=== PATIENT | male | born 1975 | race Caucasian/White ===

== ENCOUNTER → 2018-01-04 | Outpatient (CLI) | payer BC ==
[2018-01-04 09:06] LABS: BASO # 0.1 10^3/uL (0.0-0.2); BASO % 1.1 % (0.0-1.0); EOS # 0.4 10^3/uL (0.0-0.50); EOS % 5.6 % (0.0-3.0); HEMATOCRIT 40.3 % (42.0-52.0); HEMOGLOBIN 13.7 g/dl (13.5-17.5); IMMATURE GRANULOCYTE % 0.7 % (0-3.0); LYMPH # 2.2 10^3/uL (1.5-4.5); LYMPH % 31.9 % (24.0-44.0); MEAN CORPUSCULAR HEMOGLOBIN 31.4 pg (27.0-33.0); MEAN CORPUSCULAR VOLUME 92.4 fl (80.0-96.0); MONO # 0.8 10^3/uL (0.0-0.8); MONO % 10.8 % (0.0-5.0); NEUTROPHILS # 3.5 10^3/uL (1.8-7.7); NEUTROPHILS % 49.9 % (36.0-66.0); PLATELET COUNT, AUTOMATED 284 10^3/uL (150-450); RED BLOOD COUNT 4.36 10^6/uL (4.30-6.10); RED CELL DISTRIBUTION WIDTH 12.8 % (11.5-14.5)
[2018-01-04 09:23] LABS: ESTIMATED AVERAGE GLUCOSE 126 MG/DL (60-110)
[2018-01-04 09:30] LABS: ALBUMIN 3.7 GM/DL (3.2-5.2); ALBUMIN/GLOBULIN RATIO 1.19 (1.00-1.93); ALKALINE PHOSPHATASE 67 U/L (45-117); ALT/SGPT 27 U/L (12-78); ANION GAP 4 MEQ/L (8-16); AST/SGOT 19 U/L (7-37); BILIRUBIN,TOTAL 0.3 MG/DL (0.2-1.0); BLOOD UREA NITROGEN 8 MG/DL (7-18); CALCIUM LEVEL 8.7 MG/DL (8.5-10.1); CARBON DIOXIDE LEVEL 30 MEQ/L (21-32); CHLORIDE LEVEL 107 MEQ/L (98-107); CHOLESTEROL LEVEL 185 MG/DL (<200); CHOLESTEROL RISK RATIO 4.512 (<5); CREATININE FOR GFR 0.88 MG/DL (0.70-1.30); GLOMERULAR FILTRATION RATE > 60.0 (>60); GLUCOSE, FASTING 106 MG/DL (70-100); HDL CHOLESTEROL 41 MG/DL (>40); NON-HDL-C 144 MG/DL; POTASSIUM SERUM 4.4 MEQ/L (3.5-5.1); SODIUM LEVEL 141 MEQ/L (136-145); TOTAL PROTEIN 6.8 GM/DL (6.4-8.2); TRIGLYCERIDES LEVEL 310 MG/DL (<150)
[2018-01-06 09:57] LABS: TESTOSTERONE 254 NG/DL (241-827)
== END ==
LOC: M WUC 08:16
DX: M79.671 Pain in right foot (principal); R68.82 Decreased libido; R73.01 Impaired fasting glucose
CPT/HCPCS: 84403

== ENCOUNTER 2020-06-03 12:59 | Emergency (ER) | payer BC ==
[~2020-06-03] VITALS: Ht 182.9 cm; Wt 94.7 kg
[2020-06-03 13:51] LABS: BASO # 0.1 10^3/uL (0.0-0.2); BASO % 0.8 % (0.0-1.0); EOS # 0.1 10^3/uL (0.0-0.5); EOS % 1.1 % (0.0-3.0); HEMATOCRIT 46.6 % (42.0-52.0); HEMOGLOBIN 16.4 g/dl (13.5-17.5); LYMPH # 1.4 10^3/uL (1.5-5.0); MEAN CORPUSCULAR HEMOGLOBIN 32.7 pg (27.0-33.0); MEAN CORPUSCULAR HGB CONC 35.2 g/dl (32.0-36.5); MONO # 0.6 10^3/uL (0.0-0.8); MONO % 8.1 % (0.0-5.0); NEUTROPHILS # 5.1 10^3/uL (1.5-8.5); NEUTROPHILS % 70.4 % (36.0-66.0); PLATELET COUNT, AUTOMATED 271 10^3/uL (150-450); RED BLOOD COUNT 5.01 10^6/uL (4.30-6.10); WHITE BLOOD COUNT 7.3 10^3/uL (4.0-10.0)
[2020-06-03] MEDS ORDERED: NS 1,000 ML IV ONE (14:00)
[2020-06-03] MEDS ORDERED: PANTOPRAZOLE 40MG VIAL (C9113 PER 1) IV ONE (14:00)
--- NOTE | 2020-06-03 14:14 | REPVR ---
PROCEDURE INFORMATION: Exam: XR Chest, 2 Views Exam date and time: 06/03/2020 2:01 PM Age: 44 years old Clinical indication: Other: Vomiting with abdominal pain TECHNIQUE: Imaging protocol: XR of the chest Views: 2 views. COMPARISON: No relevant prior studies available. FINDINGS: Lungs: Unremarkable. No consolidation. Pleural space: Unremarkable. No pleural effusion. No pneumothorax. Heart/Mediastinum: Unremarkable. No cardiomegaly. Bones/joints: Unremarkable. IMPRESSION: No evidence for acute pulmonary disease. Electronically signed by: Pravin Cruz On 06/03/2020 14:14:28 PM
[2020-06-03 14:20] LABS: ALBUMIN 3.7 GM/DL (3.2-5.2); ALT/SGPT 119 U/L (12-78); BILIRUBIN,DIRECT 0.3 MG/DL (0.0-0.2); BILIRUBIN,TOTAL 0.8 MG/DL (0.2-1.0); BLOOD UREA NITROGEN 8 MG/DL (7-18); CALCIUM LEVEL 8.9 MG/DL (8.5-10.1); CARBON DIOXIDE LEVEL 26 MEQ/L (21-32); CHLORIDE LEVEL 103 MEQ/L (98-107); CREATININE FOR GFR 1.17 MG/DL (0.70-1.30); GLOMERULAR FILTRATION RATE > 60.0 (>60); GLUCOSE, FASTING 131 MG/DL (70-100); LIPASE 76 U/L (73-393); POTASSIUM SERUM 3.7 MEQ/L (3.5-5.1); SODIUM LEVEL 138 MEQ/L (136-145); TOTAL PROTEIN 7.3 GM/DL (6.4-8.2)
[2020-06-03] MEDS ORDERED: ISOVUE-370 76% 100ML VIAL As Ordered ONE (14:28)
--- NOTE | 2020-06-03 14:50 | REPVR ---
PROCEDURE INFORMATION: Exam: CT Abdomen And Pelvis With Contrast Exam date and time: 06/03/2020 2:31 PM Age: 44 years old Clinical indication: Abdominal pain; Epigastric; Additional info: Epigastric pain, coffee ground emesis TECHNIQUE: Imaging protocol: Computed tomography of the abdomen and pelvis with intravenous contrast. Radiation optimization: All CT scans at this facility use at least one of these dose optimization techniques: automated exposure control; mA and/or kV adjustment per patient size (includes targeted exams where dose is matched to clinical indication); or iterative reconstruction. Contrast material: ISOVUE 370; Contrast volume: 100 ml; Contrast route: INTRAVENOUS (IV); COMPARISON: No relevant prior studies available. FINDINGS: Lungs: The visualized lung bases are essentially clear. Liver: The liver is fatty in density. It appears otherwise unremarkable. Gallbladder and bile ducts: No gallstones are evident, but ultrasound would be more sensitive. No gross biliary ductal dilatation. Pancreas: Normal. No ductal dilation. Spleen: Normal. No splenomegaly. Adrenals: Normal. No mass. Kidneys and ureters: The left kidney appears unremarkable. The right kidney contains a 6 mm cyst, not requiring follow-up. It appears otherwise unremarkable. Stomach and bowel: The unopacified small bowel is not significantly distended to suggest obstruction. There is probably mild wall thickening of multiple distal small bowel loops, as well as of much of the descending and sigmoid colon and rectum. There is minor scattered colonic diverticulosis without evidence for diverticulitis. Appendix: The appendix appears normal. Intraperitoneal space: No free air or significant free fluid. Vasculature: The abdominal aorta is nonaneurysmal. Atherosclerotic vascular calcifications are noted. The left renal vein is noted to be circumaortic. Lymph nodes: Unremarkable. No enlarged lymph nodes. Bladder: Grossly unremarkable. Reproductive: Unremarkable as visualized. Bones/joints: Degenerative changes involve the spine and hips. Soft tissues: Unremarkable. IMPRESSION: 1. Probable mild wall thickening of multiple distal small bowel loops, as well as much of the descending and sigmoid colon and rectum, suggesting a nonspecific enterocolitis. 2. Minor scattered colonic diverticulosis without evidence for diverticulitis. 3. Fatty liver. COMMENTS: Consistent with the [employer]'s Incidental Findings Committee white paper (J Am Bishnu Radiol 2018): Any incidental renal lesion less than 1.0 cm or classified as too small to characterize, or any incidental cystic renal lesion characterized as simple-appearing, is likely benign. No follow-up imaging is recommended for these lesions per consensus recommendations based on imaging criteria. Electronically signed by: Pravin Cruz On 06/03/2020 14:49:43 PM
[2020-06-03 15:10] LABS: CK-MB VALUE MASS < 1.0 NG/ML (<3.6); CPK CREATINE PHOSPHOKINASE 119 U/L (39-308); MB/CK RELATIVE INDEX 0.84 (< OR =4); TROPONIN I < 0.02 NG/ML (< 0.10)
[2020-06-03 16:31] LABS: BILIRUBIN, URINE MANUAL NEGATIVE (NEGATIVE); GLUCOSE, URINE (UA) MANUAL NEGATIVE (NEGATIVE); KETONE, URINE MANUAL NEGATIVE (NEGATIVE); UROBILINOGEN, URINE MANUAL NORMAL (NORMAL)
[2020-06-03 16:38] LABS: BACTERIA, URINE NONE SEEN; HYALINE CAST, URINE NONE SEEN /lpf (0-1); SQUAMOUS EPITHELIAL CELL URINE NONE SEEN /hpf (SMALL AMT)
[2020-06-03 17:11] VITALS: BP 158/98
[2020-06-03] MEDS ORDERED: CARA1TAB6 PO (17:23)
[2020-06-03] MEDS ORDERED: OMEP40CA97 PO (17:23)
[2020-06-03] MEDS ORDERED: ONDA4TAB6 PO (17:27)
--- NOTE | 2020-06-07 09:56 | ECGEPIP ---
[facility] - ED Test Date: 2020-06-03 Pat Name: HERSON GONZALEZ Department: Room: - Gender: Male Buffer Machine: : 1975 Requested By: JOSE Connolly PA-C Order Number: [id number] Reading MD: Shabbir Kamara Measurements Intervals [place] Rate: 94 P: 13 NE: 151 QRS: -43 QRSD: 106 T: 1 QT: 370 QTc: 463 Interpretive Statements SINUS RHYTHM LEFT AXIS DEVIATION PATTERN CONSISTENT WITH PULMONARY DISEASE NO PRIORS FOR COMPARISON Electronically Signed on 06-07-2020 9:56:31 EDT by Shabbir Kamara
== END 2020-06-03 18:03 | disposition home or self-care (01) ==
LOC: M ED 12:59
DX: K52.9 Noninfective gastroenteritis and colitis, unspecified (principal); K92.0 Hematemesis; K76.0 Fatty (change of) liver, not elsewhere classified; R03.0 Elevated blood-pressure reading, without diagnosis of hypertension; K57.30 Diverticulosis of large intestine without perforation or abscess without bleeding
CPT/HCPCS: 71046; 74177; 80048; 80076; 81000; 81015; 82550; 82553; 83690; 84484; 85025; 86850; 86900; 86901; 93005; 96361; 96374; 99284; C9113; Q9967

== ENCOUNTER 2020-06-22 10:45 | Emergency (ER) | payer BC ==
[~2020-06-22] VITALS: Ht 182.9 cm; Wt 95.1 kg
[~2020-06-22 10:45] MED LIST: CARA1TAB6 PO; OMEP40CA97 PO; ONDA4TAB6 PO
[2020-06-22] MEDS ORDERED: MORPHINE 4 MG/ML 1ML VIAL/SYRINGE (J2270) IV ONE ×2 (11:15→13:15)
[2020-06-22] MEDS ORDERED: ONDANSETRON 4MG/2ML VIAL IV ONE (11:15)
[2020-06-22] MEDS ORDERED: NS 1,000 ML IV ONE (11:15)
[2020-06-22 11:36] LABS: BASO # 0.1 10^3/uL (0.0-0.2); BASO % 0.7 % (0.0-1.0); EOS # 0.1 10^3/uL (0.0-0.5); EOS % 1.1 % (0.0-3.0); HEMATOCRIT 43.1 % (42.0-52.0); HEMOGLOBIN 15.2 g/dl (13.5-17.5); LYMPH % 9.3 % (24.0-44.0); MEAN CORPUSCULAR HEMOGLOBIN 32.1 pg (27.0-33.0); MEAN CORPUSCULAR HGB CONC 35.3 g/dl (32.0-36.5); MEAN CORPUSCULAR VOLUME 91.1 fl (80.0-96.0); MONO # 1.1 10^3/uL (0.0-0.8); MONO % 9.9 % (0.0-5.0); NEUTROPHILS # 8.4 10^3/uL (1.5-8.5); NEUTROPHILS % 78.1 % (36.0-66.0); PLATELET COUNT, AUTOMATED 267 10^3/uL (150-450); RED BLOOD COUNT 4.73 10^6/uL (4.30-6.10); WHITE BLOOD COUNT 10.8 10^3/uL (4.0-10.0)
[2020-06-22 12:01] LABS: ALBUMIN 3.4 GM/DL (3.2-5.2); BILIRUBIN,DIRECT 0.3 MG/DL (0.0-0.2); BILIRUBIN,TOTAL 0.7 MG/DL (0.2-1.0); TOTAL PROTEIN 7.3 GM/DL (6.4-8.2)
[2020-06-22] MEDS: GASTROGRAFIN SOLUTION 30ML PO SCH ×2 (12:04→12:06)
[2020-06-22] MEDS ORDERED: ISOVUE-370 76% 100ML VIAL As Ordered ONE (13:10)
--- NOTE | 2020-06-22 14:19 | REPVR ---
PROCEDURE INFORMATION: Exam: CT Abdomen And Pelvis With Contrast Exam date and time: 06/22/2020 1:30 PM Age: 44 years old Clinical indication: Abdominal pain; Additional info: Return visit for severe abd pain TECHNIQUE: Imaging protocol: Computed tomography of the abdomen and pelvis with intravenous contrast. Radiation optimization: All CT scans at this facility use at least one of these dose optimization techniques: automated exposure control; mA and/or kV adjustment per patient size (includes targeted exams where dose is matched to clinical indication); or iterative reconstruction. Contrast material: ISOVUE 370; Contrast volume: 100 ml; Contrast route: INTRAVENOUS (IV); Other contrast: Oral; COMPARISON: CT ABD/PEL W/IV CONTRAST ONLY 06/03/2020 2:27 PM FINDINGS: Lungs: No suspicious mass or airspace process in the visualized lung bases. Liver: Liver is enlarged and decreased in density, consistent with fatty infiltration. Gallbladder and bile ducts: Gallbladder is present and shows no evidence of gallstone. Pancreas: Pancreas appears normal. No focal mass or peripancreatic inflammation. Spleen: Spleen appears homogeneous without focal mass. Adrenals: Adrenal glands are normal in appearance. Kidneys and ureters: Kidneys appear normal, with no stone, solid mass or hydronephrosis. Stomach and bowel: Terminal ileum has normal appearance. No evidence of acute diverticulitis. Appendix: Normal caliber appendix is identified, with no adjacent inflammation. Intraperitoneal space: No evidence of mesenteric mass. Vasculature: No aortic aneurysm. Main portal and splenic veins enhance normally. Incidental circumaortic left renal vein. Lymph nodes: No enlarged lymph nodes. Urinary bladder: Bladder is decompressed and not well evaluated. Reproductive: Dystrophic prostate calcifications are noted. Bones/joints: Bony structures are normal except for lower lumbar spine degenerative disc changes. Soft tissues: Unremarkable. IMPRESSION: 1. No acute bowel abnormality. 2. Diffuse hepatic steatosis and mild hepatomegaly Electronically signed by: Santosh Cordero On 06/22/2020 14:18:57 PM
[2020-06-22] MEDS ORDERED: CIPR-249 PO (16:47)
[2020-06-22] MEDS ORDERED: NORC1TAB7 PO (16:50)
[2020-06-22 17:00] VITALS: BP 165/110
[2020-06-22] MEDS ORDERED: CIPROFLOXACIN 500MG TABLET PO ONE (17:15)
[2020-06-22] MEDS ORDERED: NORCO, ANEXSIA 5/325MG TABLET (HYDROcodone/ACETAMINOPHEN) PO ONE (17:15)
--- NOTE | 2020-06-25 09:12 | ER ---
DATE OF CONSULTATION: 06/22/2020 BRIEF HISTORY OF PRESENT ILLNESS: Patient is a 44-year-old gentleman who has had abdominal pain for several weeks now, has had some chronic diarrhea associated with this, was seen in the emergency room previously, had some thickening of the bowel, but since that time returns today for reevaluation because of ongoing abdominal pain, has a slightly elevated white count of 10.8. He states that his pain is significant enough that he has had some problems even standing up or standing for prolonged periods of time given his abdominal pain. He does have a family history of Crohns disease (mother) and his grandfather also had colitis of undetermined etiology and had from this in the remote past. He has not had any previous problems over the years with no significant diarrhea issues, etc. He does not recall anybody else being sick or having gastroenteritis issues. PAST MEDICAL HISTORY: Significant for gastroesophageal (GE) reflux, history of hernia repair. PHYSICAL EXAMINATION: Reveals a 44-year-old male who looks stated age. HEENT: Unremarkable. Neck: Supple without adenopathy. Lungs: Clear. Heart: Regular. Abdomen: Soft, nondistended, but he is tender throughout but it is generalized tenderness, not severe peritoneal signs but just significant discomfort with palpation and this is throughout the abdomen. Extremities: Warm and well-perfused. His CT scan, when I review it, although reportedly does not show any significant problems, he has mucosal thickening of his right colon, transverse colon, and specifically right next to the costal margin in the left transverse colon he has significant inflammatory changes of the mucosa. I still see some in the descending colon but not as much, and some in the sigmoid area, but in the rectum looks like it is not as much as well. There appears to be areas where the bowel wall appears to be normal. IMPRESSION/PLAN: Patient has evidence of significant diarrhea with a family history of Crohns disease. He did get a gastrointestinal (GI) panel sent off for infectious etiology. If this is negative, I would recommend treating him empirically with some steroids and pain control. However, gastrointestinal (GI) is oncologist this weekend if further recommendations are desired. Given that I feel that this will eventually be a Crohns patient that needs to be evaluated by gastrointestinal (GI), it may be reasonable to have followup with gastrointestinal (GI) instead of surgical followup in the next several weeks. CESILIA
== END 2020-06-22 17:15 | disposition home or self-care (01) ==
LOC: M ED 10:45
DX: A02.0 Salmonella enteritis (principal); K76.0 Fatty (change of) liver, not elsewhere classified; R16.2 Hepatomegaly with splenomegaly, not elsewhere classified; K21.9 Gastro-esophageal reflux disease without esophagitis; Z83.79 Family history of other diseases of the digestive system
CPT/HCPCS: 74177; 80047; 80076; 81001; 83605; 83690; 85025; 87040; 87507; 96361; 96374; 96375; 96376; 99284; J2270; J2405; Q9963; Q9967

== ENCOUNTER → 2020-06-28 | Outpatient (CLI) | payer BC ==
[~2020-06-28] MED LIST changes: +CIPR-249 PO; +NORC1TAB7 PO
== END ==
LOC: M LABSMTC 08:17
PROVIDERS: ATTEND Anesthesiology
DX: Z01.812 Encounter for preprocedural laboratory examination (principal); Z20.828 Contact with and (suspected) exposure to other viral communicable diseases
CPT/HCPCS: C9803; U0003

== ENCOUNTER 2020-07-02 08:30 | Day surgery (SDC) | payer BC ==
[~2020-07-02] VITALS: Ht 182.9 cm; Wt 95.7 kg
[~2020-07-02 08:30] MED LIST changes: +NS 1,000 ML IV ONE
[2020-07-02] MEDS ORDERED: LIDOCAINE 2% 100MG/5ML SDV (FOR ANES.) As Ordered ONE (09:37)
[2020-07-02] MEDS ORDERED: fentaNYL 100 MCG/2 ML INJECTION (J3010) As Ordered ONE (09:38)
[2020-07-02] MEDS ORDERED: propofoL 500 MG/50 ML VIAL As Ordered ONE (09:40)
[2020-07-02] MEDS ORDERED: propofoL 200 MG/20 ML VIAL As Ordered ONE (10:40)
--- NOTE | 2020-07-02 10:47 | ROOR ---
Patient Name: Freddie Ford Procedure Date: 07/02/2020 10:09 AM Date of : 1975 Age: 44 Room: [facility] Gender: Male Note Status: Finalized Procedure: Upper GI endoscopy Indications: Hematemesis Providers: Marcos Romero DO Referring MD: Marcos Romero DO Requesting Provider: Medicines: Propofol per Anesthesia Complications: No immediate complications. Procedure: Pre-Anesthesia Assessment: - Prior to the procedure, a History and Physical was performed, and patient medications and allergies were reviewed. The patient is competent. The risks and benefits of the procedure and the sedation options and risks were discussed with the patient. All questions were answered and informed consent was obtained. Patient identification and proposed procedure were verified by the physician, the nurse, the anesthesiologist and the technician chemical cleaning in the endoscopy suite. Mental Status Examination: alert and oriented. Airway Examination: normal oropharyngeal airway and neck mobility. Respiratory Examination: clear to auscultation. CV Examination: normal. Prophylactic Antibiotics: The patient does not require prophylactic antibiotics. Prior Anticoagulants: The patient has taken no previous anticoagulant or antiplatelet agents. ASA Grade Assessment: II - A patient with mild systemic disease. After reviewing the risks and benefits, the patient was deemed in satisfactory condition to undergo the procedure. The anesthesia plan was to use monitored anesthesia care (MAC). Immediately prior to administration of medications, the patient was re-assessed for adequacy to receive sedatives. The heart rate, respiratory rate, oxygen saturations, blood pressure, adequacy of pulmonary ventilation, and response to care were monitored throughout the procedure. The physical status of the patient was re-assessed after the procedure. The Endoscope was introduced through the mouth, and advanced to the second part of duodenum. The upper GI endoscopy was accomplished without difficulty. The patient tolerated the procedure well. Findings: Diffuse mild inflammation characterized by erosions, erythema and friability was found in the duodenal bulb, in the first portion of the duodenum and in the second portion of the duodenum. Biopsies were taken with a cold forceps for histology. Estimated blood loss was minimal. Diffuse mild inflammation characterized by congestion (edema), erosions and erythema was found in the prepyloric region of the stomach. Biopsies were taken with a cold forceps for Helicobacter pylori testing. Estimated blood loss was minimal. The Z-line was irregular. Biopsies were taken with a cold forceps for histology. Estimated blood loss was minimal. Impression: - Duodenitis. Biopsied. - Gastritis. Biopsied. - Z-line irregular. Biopsied. Recommendation: - Patient has a contact number available for emergencies. The signs and symptoms of potential delayed complications were discussed with the patient. Return to normal activities tomorrow. Written discharge instructions were provided to the patient. - Return to my office at appointment to be scheduled. - Await pathology results. Marcos Romero DO 07/02/2020 10:47:08 AM Electronically signed by Marcos Romero DO Number of Addenda: 0 Note Initiated On: 07/02/2020 10:09 AM Estimated Blood Loss: Estimated blood loss was minimal.
--- NOTE | 2020-07-02 10:51 | ROOR ---
Patient Name: Freddie Ford Procedure Date: 07/02/2020 10:09 AM Date of : 1975 Age: 44 Room: [facility] Gender: Male Note Status: Finalized Procedure: Colonoscopy Indications: Abnormal CT of the GI tract Providers: Marcos Romero DO Referring MD: Marcos Romero DO Requesting Provider: Medicines: Propofol per Anesthesia Complications: No immediate complications. Procedure: Pre-Anesthesia Assessment: - Prior to the procedure, a History and Physical was performed, and patient medications and allergies were reviewed. The patient is competent. The risks and benefits of the procedure and the sedation options and risks were discussed with the patient. All questions were answered and informed consent was obtained. Patient identification and proposed procedure were verified by the physician, the nurse, the anesthesiologist and the audio/video technician in the endoscopy suite. Mental Status Examination: alert and oriented. Airway Examination: normal oropharyngeal airway and neck mobility. Respiratory Examination: clear to auscultation. CV Examination: normal. Prophylactic Antibiotics: The patient does not require prophylactic antibiotics. Prior Anticoagulants: The patient has taken no previous anticoagulant or antiplatelet agents. ASA Grade Assessment: II - A patient with mild systemic disease. After reviewing the risks and benefits, the patient was deemed in satisfactory condition to undergo the procedure. The anesthesia plan was to use monitored anesthesia care (MAC). Immediately prior to administration of medications, the patient was re-assessed for adequacy to receive sedatives. The heart rate, respiratory rate, oxygen saturations, blood pressure, adequacy of pulmonary ventilation, and response to care were monitored throughout the procedure. The physical status of the patient was re-assessed after the procedure. The Colonoscope was introduced through the anus and advanced to the cecum, identified by appendiceal orifice and ileocecal valve. The colonoscopy was performed without difficulty. The patient tolerated the procedure well. Findings: Diffuse moderate inflammation characterized by adherent blood, congestion (edema), erythema and friability was found in the recto-sigmoid colon, in the sigmoid colon, in the descending colon and in the cecum. Biopsies were taken with a cold forceps for histology. Estimated blood loss was minimal. Impression: - Diffuse moderate inflammation was found in the recto-sigmoid colon, in the sigmoid colon, in the descending colon and in the cecum. Biopsied. Recommendation: - Patient has a contact number available for emergencies. The signs and symptoms of potential delayed complications were discussed with the patient. Return to normal activities tomorrow. Written discharge instructions were provided to the patient. - Repeat colonoscopy in 3 - 5 years for surveillance based on pathology results. - Return to my office at appointment to be scheduled. - Await pathology results. Marcos Romero DO 07/02/2020 10:50:39 AM Electronically signed by Marcos Romero DO Number of Addenda: 0 Note Initiated On: 07/02/2020 10:09 AM Estimated Blood Loss: Estimated blood loss was minimal.
[2020-07-02 11:10] VITALS: BP 196/102
== END 2020-07-02 11:42 | disposition home or self-care (01) ==
LOC: M OPP 08:30
PROVIDERS: ATTEND Surgery
DX: K52.9 Noninfective gastroenteritis and colitis, unspecified (principal); R93.3 Abnormal findings on diagnostic imaging of other parts of digestive tract; K29.80 Duodenitis without bleeding; K29.70 Gastritis, unspecified, without bleeding; K22.8 Other specified diseases of esophagus; K92.0 Hematemesis; F17.210 Nicotine dependence, cigarettes, uncomplicated
CPT/HCPCS: 43239; 45380; 88305; J3010

== ENCOUNTER → 2021-10-21 | Outpatient (CLI) | payer BC ==
[~2021-10-21] MED LIST changes: -NS 1,000 ML IV ONE; +OMEP40CA4 PO; -OMEP40CA97 PO
[2021-10-21 15:42] LABS: BASO # 0.1 10^3/uL (0.0-0.2); BASO % 0.8 % (0.0-1.0); EOS # 0.1 10^3/uL (0.0-0.5); EOS % 1.6 % (0.0-3.0); HEMATOCRIT 46.1 % (42.0-52.0); HEMOGLOBIN 15.9 g/dl (13.5-17.5); LYMPH # 1.5 10^3/uL (1.5-5.0); LYMPH % 18.8 % (24.0-44.0); MEAN CORPUSCULAR HEMOGLOBIN 30.8 pg (27.0-33.0); MEAN CORPUSCULAR HGB CONC 34.5 g/dl (32.0-36.5); MEAN CORPUSCULAR VOLUME 89.2 fl (80.0-96.0); MONO # 0.6 10^3/uL (0.0-0.8); NEUTROPHILS # 5.7 10^3/uL (1.5-8.5); PLATELET COUNT, AUTOMATED 296 10^3/uL (150-450); RED BLOOD COUNT 5.17 10^6/uL (4.30-6.10)
[2021-10-21 16:04] LABS: HEMOGLOBIN A1c 7.9 %
[2021-10-21 16:10] LABS: ALT/SGPT 57 U/L (12-78); BILIRUBIN,TOTAL 0.5 MG/DL (0.2-1.0); BLOOD UREA NITROGEN 12 MG/DL (7-18); CALCIUM LEVEL 9.4 MG/DL (8.5-10.1); CARBON DIOXIDE LEVEL 28 MEQ/L (21-32); CHLORIDE LEVEL 104 MEQ/L (98-107); CHOLESTEROL LEVEL 256 MG/DL (<200); CHOLESTEROL RISK RATIO 3.459 (<5); CREATININE FOR GFR 1.08 MG/DL (0.70-1.30); GLOMERULAR FILTRATION RATE > 60.0 (>60); GLUCOSE, FASTING 183 MG/DL (70-100); HDL CHOLESTEROL 74 MG/DL (>40); LDL CHOLESTEROL 154 MG/DL (<100); NON-HDL-C 182 MG/DL; POTASSIUM SERUM 3.7 MEQ/L (3.5-5.1); SODIUM LEVEL 138 MEQ/L (136-145); TOTAL PROTEIN 7.8 GM/DL (6.4-8.2); TRIGLYCERIDES LEVEL 141 MG/DL (<150)
[2021-10-21 17:02] LABS: HEPATITIS C VIRUS ABY INDEX < 0.0 INDEX (<0.8)
[2021-10-21 17:03] LABS: HIV 1&2 SCREEN CENTAUR NEGATIVE (NEGATIVE)
== END ==
LOC: M WUC 12:00
PROVIDERS: ATTEND Family Medicine
DX: R73.01 Impaired fasting glucose (principal); Z11.4 Encounter for screening for human immunodeficiency virus [HIV]; K76.0 Fatty (change of) liver, not elsewhere classified; Z11.59 Encounter for screening for other viral diseases; Z13.220 Encounter for screening for lipoid disorders

== ENCOUNTER 2022-11-12 14:07 | Emergency (ER) | payer BC, OTHER, SELFPAY ==
[~2022-11-12] VITALS: Ht 182.9 cm; Wt 99.1 kg
[2022-11-12 14:08] VITALS: BP 175/115
[2022-11-12] MEDS ORDERED: MORPHINE 10 MG/ML 1ML VIAL IM ONE (16:20)
[2022-11-12] MEDS ORDERED: ONDANSETRON 4MG ORAL DISINTEGRATING TAB PO ONE (16:20)
[2022-11-12] MEDS ORDERED: NEOSPORIN OINT 0.9 GM PKT TOP ONE (16:20)
[2022-11-12] MEDS ORDERED: BOOSTRIX/ADACEL VACCINE (DIPHTH/PERTUSS/ACELL/TETANUS) 0.5ML SYR IM ONE (16:20)
[2022-11-12] MEDS ORDERED: PERC5TAB12 PO (17:23)
== END 2022-11-12 17:36 | disposition home or self-care (01) ==
LOC: M ED 14:07
DX: S62.395A Other fracture of fourth metacarpal bone, left hand, initial encounter for closed fracture (principal); S62.175A Nondisplaced fracture of trapezium [larger multangular], left wrist, initial encounter for closed fracture; X58.XXXA Exposure to other specified factors, initial encounter; Y99.0 Civilian activity done for income or pay
CPT/HCPCS: 73110; 73130; 90715; 99283; J2270

== ENCOUNTER → 2022-11-22 | Outpatient (CLI) | payer OTHER ==
[~2022-11-22] MED LIST changes: +PERC5TAB12 PO
== END ==
LOC: M SOG 09:05
PROVIDERS: ATTEND Physician Assistant
DX: S62.175D Nondisplaced fracture of trapezium [larger multangular], left wrist, subsequent encounter for fracture with routine healing (principal); S62.355D Nondisplaced fracture of shaft of fourth metacarpal bone, left hand, subsequent encounter for fracture with routine healing

== ENCOUNTER → 2022-12-03 | Outpatient (CLI) | payer OTHER ==
[~2022-12-03] MED LIST changes: +AMLO1TAB24 PO
== END ==
LOC: M RAD 11:50
PROVIDERS: ATTEND Physician Assistant
DX: S62.309A Unspecified fracture of unspecified metacarpal bone, initial encounter for closed fracture (principal); W18.30XA Fall on same level, unspecified, initial encounter; Y92.009 Unspecified place in unspecified non-institutional (private) residence as the place of occurrence of the external cause

== ENCOUNTER 2022-12-06 14:56 | Day surgery (SDC) | payer OTHER ==
[~2022-12-06] VITALS: Ht 182.9 cm; Wt 93.9 kg
[~2022-12-06 14:56] MED LIST changes: -AMLO1TAB24 PO
[2022-12-06] MEDS ORDERED: AMLO1TAB24 PO (15:31)
[2022-12-06] MEDS ORDERED: MIDAZOLAM INJ 2MG/2ML VIAL As Ordered ONE (16:57)
[2022-12-06] MEDS ORDERED: fentaNYL 100 MCG/2 ML INJECTION As Ordered ONE (16:58)
[2022-12-06] MEDS ORDERED: ROCURONIUM BROMIDE 50MG/5ML VIAL As Ordered ONE (16:59)
[2022-12-06] MEDS ORDERED: LIDOCAINE 2% 100MG/5ML SDV (FOR ANES.) As Ordered ONE (16:59)
[2022-12-06] MEDS ORDERED: ONDANSETRON 4MG 2ML VIAL As Ordered ONE (16:59)
[2022-12-06] MEDS ORDERED: propofoL 200 MG/20 ML VIAL As Ordered ONE (16:59)
[2022-12-06] MEDS ORDERED: SUGAMMADEX SODIUM 500 MG/5 ML VIAL (BRIDION) As Ordered ONE (16:59)
[2022-12-06] MEDS ORDERED: BUPIVACAINE HCL 0.25% 30ML VIAL As Ordered ONE (17:27)
[2022-12-06] MEDS ORDERED: ceFAZolin 2 GM/D5W 50 ML IV BAG As Ordered ONE (17:59)
[2022-12-06] MEDS ORDERED: HYDROmorphone HCL 2MG/ML 1ML VIAL As Ordered ONE (18:18)
[2022-12-06] MEDS ORDERED: ACETAMINOPHEN 1000MG 100ML IV BAG As Ordered ONE (18:20)
[2022-12-06] MEDS ORDERED: METOPROLOL 5 MG/5 ML VIAL As Ordered ONE (18:47)
[2022-12-06] MEDS ORDERED: HYDROMORPHONE HCL 0.5 MG/ 0.5 ML SYRINGE IV PRN (19:50)
[2022-12-06] MEDS ORDERED: ONDANSETRON 4MG 2ML VIAL IV PRN (19:50)
[2022-12-06] MEDS ORDERED: LR 1,000 ML IV SCH (19:50)
[2022-12-06] MEDS ORDERED: PERC5TAB12 PO (20:16)
[2022-12-06] MEDS: oxyCODONE 5MG TAB PO PRN ×2 (20:24→20:57)
[2022-12-06] MEDS: fentaNYL 100 MCG/2 ML INJECTION IV PRN ×2 (20:24→20:31)
[2022-12-06 21:08] VITALS: BP 154/97
== END 2022-12-06 21:28 | disposition home or self-care (01) ==
LOC: M SDC 14:56
PROVIDERS: ATTEND Orthopaedic Surgery Hand Surgery
DX: S62.171A Displaced fracture of trapezium [larger multangular], right wrist, initial encounter for closed fracture (principal); S63.094A Other dislocation of right wrist and hand, initial encounter; X58.XXXA Exposure to other specified factors, initial encounter; Y92.89 Other specified places as the place of occurrence of the external cause; Z53.33 Arthroscopic surgical procedure converted to open procedure; I10 Essential (primary) hypertension; K21.9 Gastro-esophageal reflux disease without esophagitis; F32.A Depression, unspecified; F41.9 Anxiety disorder, unspecified; F43.10 Post-traumatic stress disorder, unspecified; Z79.899 Other long term (current) drug therapy; Z79.890 Hormone replacement therapy
CPT/HCPCS: 25645; 76000; 87635; J0131; J0690; J1100; J1170; J2250; J2405; J3010; S0020

== ENCOUNTER → 2022-12-14 | Outpatient (CLI) | payer OTHER ==
[~2022-12-14] MED LIST changes: +AMLO1TAB24 PO
== END ==
LOC: M SOG 11:13
PROVIDERS: ATTEND Physician Assistant
DX: S62.101A Fracture of unspecified carpal bone, right wrist, initial encounter for closed fracture (principal); W18.30XA Fall on same level, unspecified, initial encounter; Y92.009 Unspecified place in unspecified non-institutional (private) residence as the place of occurrence of the external cause

== ENCOUNTER → 2023-01-04 | Outpatient (CLI) | payer OTHER | LOC: M SOG 07:56 | PROVIDERS: ATTEND Physician Assistant | DX: S62.172D Displaced fracture of trapezium [larger multangular], left wrist, subsequent encounter for fracture with routine healing (principal); S63.095D Other dislocation of left wrist and hand, subsequent encounter; W18.30XD Fall on same level, unspecified, subsequent encounter; Y92.009 Unspecified place in unspecified non-institutional (private) residence as the place of occurrence of the external cause ==

== ENCOUNTER → 2023-02-03 | Outpatient (CLI) | payer OTHER | LOC: M SOG 07:57 | PROVIDERS: ATTEND Physician Assistant | DX: S63.095D Other dislocation of left wrist and hand, subsequent encounter (principal); S62.172D Displaced fracture of trapezium [larger multangular], left wrist, subsequent encounter for fracture with routine healing ==

== ENCOUNTER → 2023-02-17 | Outpatient (CLI) | payer OTHER | LOC: M SOG 08:44 | PROVIDERS: ATTEND Physician Assistant | DX: M25.632 Stiffness of left wrist, not elsewhere classified (principal); M79.642 Pain in left hand; S62.305D Unspecified fracture of fourth metacarpal bone, left hand, subsequent encounter for fracture with routine healing ==

== ENCOUNTER → 2023-03-15 | Outpatient (CLI) | payer OTHER ==
[2023-03-15 14:21] LABS: BASO # 0.1 10^3/uL (0.0-0.2); BASO % 1.3 % (0.0-1.0); EOS # 0.5 10^3/uL (0.0-0.5); EOS % 4.8 % (0.0-3.0); HEMATOCRIT 46.7 % (42.0-52.0); HEMOGLOBIN 15.8 g/dl (13.5-17.5); LYMPH # 2.5 10^3/uL (1.5-5.0); MEAN CORPUSCULAR HGB CONC 33.8 g/dl (32.0-36.5); MEAN CORPUSCULAR VOLUME 91.7 fl (80.0-96.0); MONO # 0.9 10^3/uL (0.0-0.8); MONO % 9.1 % (2.0-8.0); NEUTROPHILS # 5.6 10^3/uL (1.5-8.5); NEUTROPHILS % 57.8 % (36.0-66.0); PLATELET COUNT, AUTOMATED 334 10^3/uL (150-450); RED BLOOD COUNT 5.09 10^6/uL (4.30-6.10); WHITE BLOOD COUNT 9.8 10^3/uL (4.0-10.0)
[2023-03-15 14:43] LABS: ALBUMIN 4.2 G/DL (3.2-5.2); ALKALINE PHOSPHATASE 114 U/L (46-116); ALT/SGPT 46 U/L (7.0-40); AST/SGOT 29 U/L (<34); BILIRUBIN,TOTAL 0.7 MG/DL (0.3-1.2); BLOOD UREA NITROGEN 15 MG/DL (9-23); CALCIUM LEVEL 9.3 MG/DL (8.5-10.1); CARBON DIOXIDE LEVEL 26 MMOL/L (20-31); CHLORIDE LEVEL 104 MMOL/L (98-107); CHOLESTEROL LEVEL 259 MG/DL (<200); CHOLESTEROL RISK RATIO 4.26 (<5); CREATININE FOR GFR 0.78 MG/DL (0.70-1.30); GLOMERULAR FILTRATION RATE > 60.0 (>60); GLUCOSE, FASTING 259 MG/DL (60-100); HDL CHOLESTEROL 60.7 MG/DL (>40); LDL CHOLESTEROL 145.3 MG/DL (<100); NON-HDL-C 198.3 MG/DL; POTASSIUM SERUM 4.1 MMOL/L (3.5-5.1); SODIUM LEVEL 139 MMOL/L (136-145); TOTAL PROTEIN 7.1 G/DL (5.7-8.2); TRIGLYCERIDES LEVEL 265 MG/DL (<150)
[2023-03-15 14:46] LABS: FREE T4 1.01 NG/DL (0.89-1.76)
[2023-03-15 14:47] LABS: THYROID STIMULATING HORMONE 0.847 uIU/ML (0.55-4.78)
[2023-03-15 14:53] LABS: CREATININE, URINE 160.8 MG/DL
[2023-03-15 14:54] LABS: MAU/CREAT RATIO 7.4 MCG/MG (0.0-30.0)
[2023-03-15 15:02] LABS: HEMOGLOBIN A1c 8.2 % (4.0-6.0)
== END ==
LOC: M WUC 10:06
PROVIDERS: ATTEND Family Medicine
DX: E11.9 Type 2 diabetes mellitus without complications (principal)

== ENCOUNTER → 2023-03-24 | Outpatient (CLI) | payer OTHER | LOC: M SOG 08:14 | PROVIDERS: ATTEND Physician Assistant | DX: M79.642 Pain in left hand (principal); S63.095D Other dislocation of left wrist and hand, subsequent encounter; M19.042 Primary osteoarthritis, left hand ==

== ENCOUNTER → 2024-03-27 | Outpatient (CLI) | payer OTHER ==
[~2024-03-27] MED LIST changes: +ONDA-282 PO; -ONDA4TAB6 PO
[2024-03-27 12:21] LABS: ALBUMIN 3.8 G/DL (3.2-5.2); ALKALINE PHOSPHATASE 110 U/L (46-116); ALT/SGPT 45 U/L (7.0-40); AST/SGOT 22 U/L (<34); BILIRUBIN,TOTAL 0.8 MG/DL (0.3-1.2); BLOOD UREA NITROGEN 9 MG/DL (9-23); CALCIUM LEVEL 9.7 MG/DL (8.5-10.1); CARBON DIOXIDE LEVEL 27 MMOL/L (20-31); CHLORIDE LEVEL 100 MMOL/L (98-107); CHOLESTEROL LEVEL 211 MG/DL (<200); CHOLESTEROL RISK RATIO 4.11 (<5); CREATININE FOR GFR 0.75 MG/DL (0.70-1.30); GLOMERULAR FILTRATION RATE > 60.0 (>60); GLUCOSE, FASTING 366 MG/DL (60-100); HDL CHOLESTEROL 51.3 MG/DL (>40); LDL CHOLESTEROL 122.9 MG/DL (<100); NON-HDL-C 159.7 MG/DL; POTASSIUM SERUM 3.1 MMOL/L (3.5-5.1); SODIUM LEVEL 138 MMOL/L (136-145); TRIGLYCERIDES LEVEL 184 MG/DL (<150)
[2024-03-27 12:23] LABS: CREATININE, URINE 130.8 MG/DL; HEMOGLOBIN A1c 11.3 % (4.0-6.0)
== END ==
LOC: M WUC 10:26
PROVIDERS: ATTEND Family Medicine
DX: E66.3 Overweight (principal); E11.9 Type 2 diabetes mellitus without complications; N52.9 Male erectile dysfunction, unspecified

== ENCOUNTER → 2025-04-30 | Outpatient (CLI) | payer OTHER ==
[~2025-04-30] MED LIST changes: +FLUO-365 PO; +METF-838 PO
== END ==
LOC: M WUC 11:42
DX: M95.4 Acquired deformity of chest and rib (principal); M79.671 Pain in right foot; M79.672 Pain in left foot; M19.072 Primary osteoarthritis, left ankle and foot; M77.31 Calcaneal spur, right foot; M77.32 Calcaneal spur, left foot

== ENCOUNTER → 2025-04-30 | Outpatient (REF) | payer OTHER | LOC: M SFHCLERA 11:07 | DX: Z00.00 Encounter for general adult medical examination without abnormal findings (principal); E11.9 Type 2 diabetes mellitus without complications; Z53.9 Procedure and treatment not carried out, unspecified reason ==

== ENCOUNTER 2025-05-01 17:19 | Inpatient (IN) | payer OTHER ==
[~2025-05-01] VITALS: Ht 182.9 cm; Wt 80.7 kg
[~2025-05-01 17:19] MED LIST changes: -ALCOPAD25 TOP; -ALDA25TA2 PO; -BLOOKIT21 XX; -FARX1TAB3 PO; -FARX1TAB5 PO; -FLUO-365 PO; -GLUC1TES2 XX; -LANC30MI XX; -LOPE1CAP5 PO; -LOPE2CAP PO; -METF-838 PO; -POTA-151 PO; -POTA-298 PO; -SLOW1TAB3 PO; -SPIR-10 PO; -TALK1KIT MC; -TUMS750C5 PO
[2025-05-01] MEDS: MAG SULF 1GM/100ML (MAG RUN) 1 GM in IV 1 EA IV ONE (18:00)
[2025-05-01] MEDS: POTASSIUM CHLORIDE 10% LIQ 20MEQ/15ML UDC PO ONE (18:04)
[2025-05-01] MEDS: KCL 10MEQ/100ML SWI (KRUN) 10 MEQ in IV 1 EA IV ONE (18:05)
[2025-05-01] MEDS: NS (Normal Saline) 0.9% 1,000 ML IV ONE (18:11)
[2025-05-01 18:30] LABS: ALT/SGPT 81 U/L (7.0-40); AST/SGOT 124 U/L (<34); CALCIUM LEVEL 8.2 MG/DL (8.5-10.1); CARBON DIOXIDE LEVEL > 40.0 MMOL/L (20-31); CHLORIDE LEVEL 74 MMOL/L (98-107); CREATININE FOR GFR 1.12 MG/DL (0.70-1.30); GLOMERULAR FILTRATION RATE 80.0 (>56); MAGNESIUM LEVEL 1.6 MG/DL (1.8-2.4); POTASSIUM SERUM 2.0 MMOL/L (3.5-5.1); SODIUM LEVEL 129 MMOL/L (136-145)
[2025-05-01 18:32] LABS: VENOUS BASE EXCESS 18.4 (-2.0-2.0); VENOUS HCO3 44.6 MMOL/L (23.0-27.0); VENOUS O2 SATURATION 50.0 % (60.0-80.0); VENOUS PARTIAL PRESSURE CO2 56.9 mmHg (38.0-50.0); VENOUS PARTIAL PRESSURE O2 25.6 mmHg (30.0-50.0); VENOUS PH 7.512 UNITS (7.330-7.430); VENOUS STANDARD HCO3 41.1 MMOL/L; VENOUS TOTAL CO2 46.3 MMOL/L (24.0-28.0)
[2025-05-01] MEDS ORDERED: METF-838 PO (18:33)
[2025-05-01] MEDS ORDERED: FLUO-365 PO (18:33)
[2025-05-01] MEDS ORDERED: HOME MED LIST COMPLETE! XX SCH (18:35)
[2025-05-01 19:05] LABS: ACETONE/KETONE 0.42 MMOL/L (0.02-0.27)
[2025-05-01 19:12] LABS: OSMOLALITY SERUM 279.0 MOSM/KG (275-295)
[2025-05-01 21:12] LABS: BASO # 0.1 10^3/uL (0.0-0.2); BASO % 0.7 % (0.0-1.0); EOS # 0.1 10^3/uL (0.0-0.5); EOS % 0.8 % (0.0-3.0); LYMPH # 2.1 10^3/uL (1.5-5.0); LYMPH % 23.6 % (24.0-44.0); MONO # 1.0 10^3/uL (0.0-0.8); MONO % 11.3 % (2.0-8.0); NEUTROPHILS # 5.6 10^3/uL (1.5-8.5); NEUTROPHILS % 62.8 % (36.0-66.0); PLATELET COUNT, AUTOMATED 171 10^3/uL (150-450)
[2025-05-01 21:28] LABS: KETONE, URINE AUTO RFX NEGATIVE (NEGATIVE); LEUKOCYTE ESTERASE UR AUTO RFX NEGATIVE (NEGATIVE); NITRITE, URINE AUTO RFX NEGATIVE (NEGATIVE); RBC, URINE AUTO RFX 1 /HPF (0-3); SQUAM EPITHELIAL CELL UR AURFX 0 /HPF (0-6); WBC, URINE AUTO RFX 1 /HPF (0-3)
[2025-05-01] MEDS: KCL 10MEQ/100ML SWI (KRUN) 10 MEQ in IV 1 EA IV SCH (21:32)
[2025-05-01 21:43] LABS: PLATELET ESTIMATE NORMAL (NORMAL)
[2025-05-01] MEDS: NS (Normal Saline) 0.9% 1,000 ML IV SCH (21:45)
[2025-05-01 21:54] LABS: AMPHETAMINES LEVEL URINE NEGATIVE (NEGATIVE); BARBITURATES URINE NEGATIVE (NEGATIVE); BENZODIAZEPINES URINE NEGATIVE (NEGATIVE); CANNABINOIDS URINE NEGATIVE (NEGATIVE); COCAINE METABOLITE URINE NEGATIVE (NEGATIVE); METHADONE URINE NEGATIVE (NEGATIVE); OPIATES URINE NEGATIVE (NEGATIVE); PHENCYCLIDINE URINE NEGATIVE (NEGATIVE)
[2025-05-01] MEDS ORDERED: DEXTROSE 50% 50 ML SYRINGE IV PRN (21:55)
[2025-05-01] MEDS ORDERED: GLUCOSE 4 GM CHEW PO PRN (21:55)
[2025-05-01] MEDS ORDERED: GLUCAGON INJ 1 MG VIAL SC PRN (21:55)
[2025-05-01] MEDS ORDERED: MAALOX 30 ML SUSP *UDC PO PRN (21:55)
[2025-05-01] MEDS ORDERED: MOM 30 ML SUSPENSION UDC PO PRN (21:55)
[2025-05-01 21:56] LABS: ETHYL ALCOHOL (ETHANOL) < 0.003 % (0.000-0.010)
[2025-05-01 21:58] LABS: SALICYLATE LEVEL < 3.0 MG/DL (<30)
[2025-05-01 21:59] LABS: CHLORIDE,RANDOM URINE < 20 MMOL/L
[2025-05-01 22:34] LABS: HEPATITIS C VIRUS ABY INDEX < 0.02 INDEX (<0.8)
[2025-05-01 22:34] LABS: CK-MB VALUE MASS 3.7 NG/ML (<3.6)
[2025-05-01 22:36] LABS: CPK CREATINE PHOSPHOKINASE 328 U/L (46-171); MB/CK RELATIVE INDEX 1.12 (< OR =4)
[2025-05-01 22:38] LABS: CALCIUM LEVEL 7.3 MG/DL (8.5-10.1); CARBON DIOXIDE LEVEL > 40.0 MMOL/L (20-31); CHLORIDE LEVEL 81 MMOL/L (98-107); CREATININE FOR GFR 1.04 MG/DL (0.70-1.30); GLOMERULAR FILTRATION RATE 87.5 (>56); MAGNESIUM LEVEL 1.9 MG/DL (1.8-2.4); PHOSPHORUS LEVEL 2.3 MG/DL (2.5-4.9); POTASSIUM SERUM 2.0 MMOL/L (3.5-5.1); SODIUM LEVEL 134 MMOL/L (136-145)
[2025-05-01 22:55] LABS: CK-MB VALUE MASS 2.6 NG/ML (<3.6)
[2025-05-01 22:56] LABS: CPK CREATINE PHOSPHOKINASE 260 U/L (46-171); MB/CK RELATIVE INDEX 1.00 (< OR =4)
[2025-05-01 22:59] LABS: CORTISOL PM 17.5 UG/DL (3.1-16.7)
[2025-05-01 23:06] LABS: SODIUM,RANDOM URINE 11.0 MMOL/L
[2025-05-01 23:08] LABS: INR 1.09
[2025-05-01] MEDS: THIAMINE 100 MG TAB PO SCH (23:11)
[2025-05-01] MEDS: CALCIUM GLUCONATE 1,000 MG in DEXTROSE 5% (D5W) MINI-BAG PLU 100 ML IV ONE (23:11)
[2025-05-01] MEDS: POTASSIUM CHLORIDE 10MEQ SR TABLET PO SCH (23:33)
[2025-05-01] MEDS: KCL 40MEQ in NS 1000ML 1,000 ML IV SCH (23:33)
[2025-05-02] VITALS (25 sets, daily range): BP systolic 110–142; BP diastolic 77–94; TEMP 97–98.4; O2SAT 95–100
[2025-05-02] MEDS: K-PHOS ORIGINAL (POT.ACID PHOSPHATE) 500 MG TAB PO ONE (00:02)
[2025-05-02 00:55] LABS: POTASSIUM RANDOM URINE 4.6 MMOL/L
[2025-05-02 01:49] LABS: CALCIUM LEVEL 7.4 MG/DL (8.5-10.1); CARBON DIOXIDE LEVEL 40 MMOL/L (20-31); CHLORIDE LEVEL 84 MMOL/L (98-107); CREATININE FOR GFR 0.92 MG/DL (0.70-1.30); GLOMERULAR FILTRATION RATE > 90.0 (>56); MAGNESIUM LEVEL 1.9 MG/DL (1.8-2.4); POTASSIUM SERUM 1.9 MMOL/L (3.5-5.1); SODIUM LEVEL 133 MMOL/L (136-145)
[2025-05-02] MEDS ORDERED: SPIRONOLACTONE 12.5MG PER 1/2 TABLET PO SCH (02:10)
[2025-05-02] MEDS: KCL 10MEQ/100ML SWI (KRUN) 10 MEQ in IV 1 EA IV SCH (02:27)
[2025-05-02] MEDS: POTASSIUM CHLORIDE 10% LIQ 20MEQ/15ML UDC PO SCH (02:28)
[2025-05-02 05:56] LABS: VENOUS BASE EXCESS 12.0 (-2.0-2.0); VENOUS HCO3 37.5 MMOL/L (23.0-27.0); VENOUS O2 SATURATION 88.0 % (60.0-80.0); VENOUS PARTIAL PRESSURE CO2 51.6 mmHg (38.0-50.0); VENOUS PARTIAL PRESSURE O2 55.2 mmHg (30.0-50.0); VENOUS PH 7.479 UNITS (7.330-7.430); VENOUS STANDARD HCO3 35.5 MMOL/L; VENOUS TOTAL CO2 39.1 MMOL/L (24.0-28.0)
[2025-05-02 06:24] LABS: CORTISOL AM 21.5 UG/DL (4.3-22.4)
[2025-05-02 06:27] LABS: ALT/SGPT 65 U/L (7.0-40); AST/SGOT 103 U/L (<34); CALCIUM LEVEL 7.9 MG/DL (8.5-10.1); CARBON DIOXIDE LEVEL 38 MMOL/L (20-31); CHLORIDE LEVEL 90 MMOL/L (98-107); CREATININE FOR GFR 0.90 MG/DL (0.70-1.30); GLOMERULAR FILTRATION RATE > 90.0 (>56); MAGNESIUM LEVEL 2.0 MG/DL (1.8-2.4); POTASSIUM SERUM 2.3 MMOL/L (3.5-5.1); SODIUM LEVEL 138 MMOL/L (136-145)
[2025-05-02 07:09] LABS: PLATELET COUNT, AUTOMATED 182 10^3/uL (150-450)
[2025-05-02] MEDS: ENOXAPARIN 40 MG/0.4 ML SYRINGE (J1650 PER 10MG) SC SCH (08:21)
[2025-05-02] MEDS: INSULIN LISPRO (NovoLOG) PER UNIT SC SCH ×2 (08:22→21:00)
[2025-05-02] MEDS: MULTIVITAMINS/MINERALS THERAP 1 TAB PO SCH (08:22)
[2025-05-02] MEDS: DOCUSATE SODIUM 100 MG CAPSULE PO SCH (08:22)
[2025-05-02] MEDS: FOLIC ACID 1 MG TAB PO SCH (08:22)
[2025-05-02] MEDS: NICOTINE POLACRILEX 2 MG GUM PO PRN (09:38)
[2025-05-02 10:31] LABS: CALCIUM LEVEL 7.7 MG/DL (8.5-10.1); CARBON DIOXIDE LEVEL 34 MMOL/L (20-31); CHLORIDE LEVEL 93 MMOL/L (98-107); CREATININE FOR GFR 0.78 MG/DL (0.70-1.30); GLOMERULAR FILTRATION RATE > 90.0 (>56); MAGNESIUM LEVEL 2.0 MG/DL (1.8-2.4); POTASSIUM SERUM 2.3 MMOL/L (3.5-5.1); SODIUM LEVEL 139 MMOL/L (136-145)
[2025-05-02] MEDS: GASTROGRAFIN SOLUTION 30ML PO SCH (12:57)
[2025-05-02 14:26] LABS: CALCIUM LEVEL 8.2 MG/DL (8.5-10.1); CARBON DIOXIDE LEVEL 35 MMOL/L (20-31); CHLORIDE LEVEL 95 MMOL/L (98-107); CREATININE FOR GFR 0.76 MG/DL (0.70-1.30); GLOMERULAR FILTRATION RATE > 90.0 (>56); MAGNESIUM LEVEL 2.1 MG/DL (1.8-2.4); POTASSIUM SERUM 2.3 MMOL/L (3.5-5.1); SODIUM LEVEL 142 MMOL/L (136-145)
[2025-05-02] MEDS: SPIRONOLACTONE 25 MG TAB PO ONE (14:58)
[2025-05-02] MEDS ORDERED: ISOVUE-370 76% 100 ML VIAL As Ordered ONE (15:12)
[2025-05-02] MEDS: KCL 10MEQ/100ML SWI (KRUN) IV SCH (15:43)
[2025-05-02] MEDS: LOPERAMIDE 2 MG CAPLET PO PRN (15:49)
[2025-05-02 21:08] LABS: CALCIUM LEVEL 7.9 MG/DL (8.5-10.1); CARBON DIOXIDE LEVEL 36 MMOL/L (20-31); CHLORIDE LEVEL 97 MMOL/L (98-107); CREATININE FOR GFR 0.74 MG/DL (0.70-1.30); GLOMERULAR FILTRATION RATE > 90.0 (>56); MAGNESIUM LEVEL 2.0 MG/DL (1.8-2.4); POTASSIUM SERUM 2.6 MMOL/L (3.5-5.1); SODIUM LEVEL 144 MMOL/L (136-145)
[2025-05-02] MEDS ORDERED: POTASSIUM CHLORIDE 10MEQ SR TABLET PO ONE (21:20)
[2025-05-02] MEDS ORDERED: KCL 20MEQ IN 100ML SWI (KRUN) 20 MEQ in IV 1 EA IV ONE ×2 (21:30→22:30)
[2025-05-03] VITALS (22 sets, daily range): BP systolic 120–143; BP diastolic 60–96; TEMP 97.2–98.2; O2SAT 93–99
[2025-05-03 00:55] LABS: CALCIUM LEVEL 7.3 MG/DL (8.5-10.1); CARBON DIOXIDE LEVEL 35 MMOL/L (20-31); CHLORIDE LEVEL 98 MMOL/L (98-107); CREATININE FOR GFR 0.79 MG/DL (0.70-1.30); GLOMERULAR FILTRATION RATE > 90.0 (>56); POTASSIUM SERUM 2.6 MMOL/L (3.5-5.1); SODIUM LEVEL 141 MMOL/L (136-145)
[2025-05-03] MEDS ORDERED: POTASSIUM CHLORIDE 10MEQ SR TABLET PO ONE (01:30)
[2025-05-03] MEDS ORDERED: KCL 20MEQ IN 100ML SWI (KRUN) 20 MEQ in IV 1 EA IV ONE ×2 (01:35→06:25)
[2025-05-03] MEDS: KCL 10MEQ/100ML SWI (KRUN) 10 MEQ in IV 1 EA IV SCH ×2 (01:59→06:44)
[2025-05-03] MEDS: POTASSIUM CHLORIDE 10MEQ SR TABLET PO ONE ×3 (04:13→23:26)
[2025-05-03 06:10] LABS: CALCIUM LEVEL 7.1 MG/DL (8.5-10.1); CARBON DIOXIDE LEVEL 35 MMOL/L (20-31); CHLORIDE LEVEL 98 MMOL/L (98-107); CREATININE FOR GFR 0.80 MG/DL (0.70-1.30); GLOMERULAR FILTRATION RATE > 90.0 (>56); POTASSIUM SERUM 2.7 MMOL/L (3.5-5.1); SODIUM LEVEL 142 MMOL/L (136-145)
[2025-05-03] MEDS: SPIRONOLACTONE 25 MG TAB PO SCH (08:56)
[2025-05-03 09:59] LABS: CALCIUM LEVEL 7.0 MG/DL (8.5-10.1); CARBON DIOXIDE LEVEL 31 MMOL/L (20-31); CHLORIDE LEVEL 101 MMOL/L (98-107); CREATININE FOR GFR 0.77 MG/DL (0.70-1.30); GLOMERULAR FILTRATION RATE > 90.0 (>56); POTASSIUM SERUM 3.2 MMOL/L (3.5-5.1); SODIUM LEVEL 141 MMOL/L (136-145)
[2025-05-03] MEDS: ACETAMINOPHEN 325 MG TAB PO PRN (11:16)
[2025-05-03] MEDS: LIDOCAINE 5% PATCH TD SCH (12:07)
[2025-05-03 16:09] LABS: CALCIUM LEVEL 7.2 MG/DL (8.5-10.1); CARBON DIOXIDE LEVEL 30 MMOL/L (20-31); CHLORIDE LEVEL 102 MMOL/L (98-107); CREATININE FOR GFR 0.72 MG/DL (0.70-1.30); GLOMERULAR FILTRATION RATE > 90.0 (>56); POTASSIUM SERUM 3.7 MMOL/L (3.5-5.1); SODIUM LEVEL 142 MMOL/L (136-145)
[2025-05-03] MEDS: LIDOCAINE 4% CREAM 5 GM (LMX4) TOP PRN (18:06)
[2025-05-03] MEDS: PERCOCET 5MG/325MG TAB PO STA (18:20)
[2025-05-03 21:51] LABS: CALCIUM LEVEL 7.6 MG/DL (8.5-10.1); CARBON DIOXIDE LEVEL 30 MMOL/L (20-31); CHLORIDE LEVEL 103 MMOL/L (98-107); CREATININE FOR GFR 0.68 MG/DL (0.70-1.30); GLOMERULAR FILTRATION RATE > 90.0 (>56); POTASSIUM SERUM 3.4 MMOL/L (3.5-5.1); SODIUM LEVEL 143 MMOL/L (136-145)
[2025-05-04 00:16] VITALS: BP 144/93; TEMP 98.7; O2SAT 95
[2025-05-04 03:29] LABS: CALCIUM LEVEL 7.2 MG/DL (8.5-10.1); CARBON DIOXIDE LEVEL 31 MMOL/L (20-31); CHLORIDE LEVEL 103 MMOL/L (98-107); CREATININE FOR GFR 0.69 MG/DL (0.70-1.30); GLOMERULAR FILTRATION RATE > 90.0 (>56); POTASSIUM SERUM 3.0 MMOL/L (3.5-5.1); SODIUM LEVEL 142 MMOL/L (136-145)
[2025-05-04 04:10] VITALS: BP 143/98; TEMP 97.2; O2SAT 99
[2025-05-04 05:42] LABS: PLATELET COUNT, AUTOMATED 171 10^3/uL (150-450)
[2025-05-04] MEDS: POTASSIUM CHLORIDE 10MEQ SR TABLET PO SCH ×2 (08:03→16:12)
[2025-05-04] MEDS: CALCIUM GLUCONATE 1,000 MG in DEXTROSE 5% (D5W) MINI-BAG PLU 100 ML IV ONE (08:04)
[2025-05-04 08:12] VITALS: BP 152/100; TEMP 97.3; O2SAT 99
[2025-05-04 08:23] LABS: MAGNESIUM LEVEL 1.2 MG/DL (1.8-2.4)
[2025-05-04] MEDS ORDERED: POTASSIUM CHLORIDE 10MEQ SR TABLET PO SCH ×2 (09:00)
[2025-05-04] MEDS: MAG SULF 1GM/100ML (MAG RUN) 1 GM in IV 1 EA IV ONE (09:25)
[2025-05-04 12:12] VITALS: BP 156/99; TEMP 97.2; O2SAT 96
[2025-05-04 16:08] VITALS: BP 151/97; TEMP 97.2; O2SAT 97
[2025-05-04] MEDS: MAG SULF 1GM/100ML (MAG RUN) 1 GM in IV 1 EA IV SCH (16:13)
[2025-05-04 17:09] LABS: MAGNESIUM LEVEL 1.4 MG/DL (1.8-2.4); POTASSIUM SERUM 3.9 MMOL/L (3.5-5.1)
[2025-05-04 17:21] LABS: ESTIMATED AVERAGE GLUCOSE 246.0 MG/DL (60-110)
[2025-05-04] MEDS ORDERED: PILL CUTTER 1 EACH XX ONE (17:30)
[2025-05-04] MEDS: DAPAGLIFLOZIN PROPANEDIOL 10 MG TABLET PO ONE (17:39)
[2025-05-04 20:00] VITALS: BP 132/92; TEMP 97.3; O2SAT 98
[2025-05-04 22:51] LABS: MAGNESIUM LEVEL 1.8 MG/DL (1.8-2.4); POTASSIUM SERUM 4.6 MMOL/L (3.5-5.1)
[2025-05-05] VITALS: BP 150/103; TEMP 97; O2SAT 98
[2025-05-05 04:00] VITALS: BP 156/102; TEMP 97.2; O2SAT 94
[2025-05-05] MEDS: amLODIPine 10 MG TAB PO ONE (06:53)
[2025-05-05] MEDS: DIPHENOXYLATE HCL/ATROPINE 2.5 MG/0.025 MG TABLET PO ONE (06:53)
[2025-05-05 07:47] VITALS: BP 137/95; TEMP 97.3; O2SAT 97
[2025-05-05 08:26] LABS: CALCIUM LEVEL 7.4 MG/DL (8.5-10.1); CARBON DIOXIDE LEVEL 28 MMOL/L (20-31); CHLORIDE LEVEL 102 MMOL/L (98-107); CREATININE FOR GFR 0.82 MG/DL (0.70-1.30); GLOMERULAR FILTRATION RATE > 90.0 (>56); MAGNESIUM LEVEL 1.7 MG/DL (1.8-2.4); POTASSIUM SERUM 4.5 MMOL/L (3.5-5.1); SODIUM LEVEL 138 MMOL/L (136-145)
[2025-05-05] MEDS ORDERED: DAPAGLIFLOZIN PROPANEDIOL 10 MG TABLET PO SCH (09:00)
[2025-05-05 09:15] VITALS: BP 137/95
[2025-05-05] MEDS: DAPAGLIFLOZIN PROPANEDIOL 10 MG TABLET PO SCH (09:16)
[2025-05-05] MEDS: CALCIUM GLUCONATE 1,000 MG in DEXTROSE 5% (D5W) MINI-BAG PLU 100 ML IV ONE (09:17)
[2025-05-05] MEDS: MAG SULF 1GM/100ML (MAG RUN) 1 GM in IV 1 EA IV ONE (09:17)
[2025-05-05] MEDS: IBUPROFEN 600 MG TAB PO PRN (09:19)
[2025-05-05] MEDS ORDERED: LOPERAMIDE 2 MG CAPLET PO PRN (10:00)
[2025-05-05] MEDS: LOPERAMIDE 2 MG CAPLET PO ONE (11:58)
[2025-05-05] MEDS ORDERED: FARX1TAB3 PO (12:28)
[2025-05-05] MEDS ORDERED: ALDA25TA2 PO (12:33)
[2025-05-05] MEDS ORDERED: TALK1KIT MC (12:36)
[2025-05-05] MEDS ORDERED: POTA-298 PO (12:36)
[2025-05-05] MEDS ORDERED: LOPE2CAP PO (12:37)
[2025-05-05] MEDS ORDERED: TUMS750C5 PO (12:41)
[2025-05-05] MEDS ORDERED: SLOW1TAB3 PO (12:41)
[2025-05-05] MEDS: CALCIUM GLUCONATE 1,000 MG in DEXTROSE 5% (D5W) MINI-BAG PLU 100 ML IV SCH (13:59)
[2025-05-05] MEDS ORDERED: ALCOPAD25 TOP (14:29)
[2025-05-05] MEDS ORDERED: BLOOKIT21 XX (14:29)
[2025-05-05] MEDS ORDERED: GLUC1TES2 XX (14:29)
[2025-05-05] MEDS ORDERED: LANC30MI XX (14:29)
[2025-05-05] MEDS: MAG SULF 1GM/100ML (MAG RUN) 1 GM in IV 1 EA IV SCH (15:06)
[2025-05-05 15:45] VITALS: BP 126/85; TEMP 97.5; O2SAT 95
[2025-05-05] MEDS ORDERED: POTASSIUM CHLORIDE 10MEQ SR TABLET PO SCH (21:00)
[2025-05-06] MEDS ORDERED: POTASSIUM CHLORIDE 10MEQ SR TABLET PO SCH (09:00)
[2025-05-07 20:22] LABS: ALDOSTERONE LC < 1 ng/dL (see note)
[2025-05-07 22:17] LABS: ADRENOCORTICOTROPHIC HORMONE 10 pg/mL (6-50)
[2025-05-08 15:17] LABS: IMMUNOGLOBULIN A CELIAC 361 mg/dL (47-310); t-TRANSGLUTAMINASE(tTG) IgA < 1.0 U/mL (<15.0); t-TRANSGLUTAMINASE(tTG) IgG < 1.0 U/mL (<15.0)
[2025-05-13] MEDS ORDERED: SPIR-10 PO (10:04)
[2025-05-13] MEDS ORDERED: SLOW1TAB3 PO (10:04)
[2025-05-13] MEDS ORDERED: POTA-151 PO (10:04)
[2025-05-13] MEDS ORDERED: LOPE1CAP5 PO (10:04)
[2025-05-13] MEDS ORDERED: FARX1TAB5 PO (10:04)
== END 2025-05-05 16:38 | disposition home or self-care (01) | DRG 425 ==
LOC: M ED 17:19 → M ED INP 21:53 → M PCU 05-02 03:31
PROVIDERS: ADMIT Internal Medicine; ATTEND General Practice
DX: E87.6 Hypokalemia (principal); E87.3 Alkalosis; K52.1 Toxic gastroenteritis and colitis; E11.65 Type 2 diabetes mellitus with hyperglycemia; R16.0 Hepatomegaly, not elsewhere classified; E83.42 Hypomagnesemia; K76.0 Fatty (change of) liver, not elsewhere classified; E83.39 Other disorders of phosphorus metabolism; E83.51 Hypocalcemia; I10 Essential (primary) hypertension; F31.9 Bipolar disorder, unspecified; N52.9 Male erectile dysfunction, unspecified; E78.5 Hyperlipidemia, unspecified; T38.3X5A Adverse effect of insulin and oral hypoglycemic [antidiabetic] drugs, initial encounter; E87.1 Hypo-osmolality and hyponatremia; F17.220 Nicotine dependence, chewing tobacco, uncomplicated; R79.89 Other specified abnormal findings of blood chemistry; Z79.84 Long term (current) use of oral hypoglycemic drugs; Z79.899 Other long term (current) drug therapy

== ENCOUNTER → 2025-05-01 | Outpatient (CLI) | payer OTHER ==
[~2025-05-01] MED LIST changes: +ALCOPAD25 TOP; +ALDA25TA2 PO; +BLOOKIT21 XX; +FARX1TAB3 PO; +FARX1TAB5 PO; +GLUC1TES2 XX; +LANC30MI XX; +LOPE1CAP5 PO; +LOPE2CAP PO; +POTA-151 PO; +POTA-298 PO; +SLOW1TAB3 PO; +SPIR-10 PO; +TALK1KIT MC; +TUMS750C5 PO
[2025-05-01 14:52] LABS: MALB URINE SIEMENS 174.0 MG/L
[2025-05-01 15:05] LABS: CREATININE, URINE 553.5 MG/DL; MAU/CREAT RATIO 31.4 MCG/MG (0.0-30.0)
[2025-05-01 15:46] LABS: ESTIMATED AVERAGE GLUCOSE 255.0 MG/DL (60-110)
[2025-05-01 16:21] LABS: PLATELET COUNT, AUTOMATED 227 10^3/uL (150-450)
[2025-05-01 16:28] LABS: ALT/SGPT 82 U/L (7.0-40); AST/SGOT 124 U/L (<34); CALCIUM LEVEL 8.3 MG/DL (8.5-10.1); CARBON DIOXIDE LEVEL > 40.0 MMOL/L (20-31); CHLORIDE LEVEL 75 MMOL/L (98-107); CHOLESTEROL LEVEL 174 MG/DL (<200); CHOLESTEROL RISK RATIO 2.98 (<5); CREATININE FOR GFR 1.00 MG/DL (0.70-1.30); GLOMERULAR FILTRATION RATE > 90.0 (>56); LDL CHOLESTEROL 80.5 MG/DL (<100); NON-HDL-C 115.7 MG/DL; POTASSIUM SERUM 1.7 MMOL/L (3.5-5.1); SODIUM LEVEL 130 MMOL/L (136-145); TRIGLYCERIDES LEVEL 176 MG/DL (<150)
== END ==
LOC: M WUC 11:53
DX: Z00.00 Encounter for general adult medical examination without abnormal findings (principal)

== ENCOUNTER → 2025-05-24 | Outpatient (CLI) | payer OTHER ==
[~2025-05-24] MED LIST changes: +ALCOPAD25 TOP; +ALDA25TA2 PO; +BLOOKIT21 XX; +FARX1TAB3 PO; +FARX1TAB5 PO; +FLUO-365 PO; +GLUC1TES2 XX; +LANC30MI XX; +LOPE1CAP5 PO; +LOPE2CAP PO; +METF-838 PO; +POTA-151 PO; +POTA-298 PO; +SLOW1TAB3 PO; +SPIR-10 PO; +TALK1KIT MC; +TUMS750C5 PO
[2025-05-24 12:46] LABS: ALT/SGPT 85 U/L (7.0-40); AST/SGOT 128 U/L (<34); CALCIUM LEVEL 9.6 MG/DL (8.5-10.1); CARBON DIOXIDE LEVEL 27 MMOL/L (20-31); CHLORIDE LEVEL 97 MMOL/L (98-107); CREATININE FOR GFR 0.90 MG/DL (0.70-1.30); GLOMERULAR FILTRATION RATE > 90.0 (>56); MAGNESIUM LEVEL 1.4 MG/DL (1.8-2.4); POTASSIUM SERUM 3.3 MMOL/L (3.5-5.1); SODIUM LEVEL 138 MMOL/L (136-145)
[2025-05-24 12:48] LABS: BASO # 0.1 10^3/uL (0.0-0.2); BASO % 0.7 % (0.0-1.0); EOS # 0.1 10^3/uL (0.0-0.5); EOS % 0.6 % (0.0-3.0); LYMPH # 1.7 10^3/uL (1.5-5.0); LYMPH % 17.8 % (24.0-44.0); MONO # 1.0 10^3/uL (0.0-0.8); MONO % 10.4 % (2.0-8.0); NEUTROPHILS # 6.7 10^3/uL (1.5-8.5); NEUTROPHILS % 70.0 % (36.0-66.0); PLATELET COUNT, AUTOMATED 215 10^3/uL (150-450)
[2025-05-24 13:00] LABS: ESTIMATED AVERAGE GLUCOSE 220.0 MG/DL (60-110)
[2025-05-24 13:26] LABS: CREATININE, URINE 76.8 MG/DL; MALB URINE SIEMENS 8.0 MG/L; MAU/CREAT RATIO 10.4 MCG/MG (0.0-30.0)
== END ==
LOC: M WUC 10:03
PROVIDERS: ATTEND Family Medicine
DX: E87.6 Hypokalemia (principal); E83.42 Hypomagnesemia; I10 Essential (primary) hypertension; E11.65 Type 2 diabetes mellitus with hyperglycemia

== ENCOUNTER 2025-07-24 17:21 | Emergency (ER) | payer OTHER ==
[~2025-07-24] VITALS: Ht 182.9 cm; Wt 77.7 kg
[2025-07-24 18:49] VITALS: BP 111/70; TEMP 98.1; O2SAT 99
== END 2025-07-24 18:50 | disposition home or self-care (01) ==
LOC: M ED 17:21
DX: S06.0X0A Concussion without loss of consciousness, initial encounter (principal); S01.01XA Laceration without foreign body of scalp, initial encounter; Y92.9 Unspecified place or not applicable; Y93.9 Activity, unspecified; Y99.9 Unspecified external cause status; W22.8XXA Striking against or struck by other objects, initial encounter; E11.9 Type 2 diabetes mellitus without complications; F10.10 Alcohol abuse, uncomplicated; Z79.899 Other long term (current) drug therapy

== ENCOUNTER 2025-07-29 10:12 | Inpatient (IN) | payer OTHER ==
[~2025-07-29] VITALS: Ht 182.9 cm; Wt 75.4 kg
[2025-07-29] MEDS: NS (Normal Saline) 0.9% 1,000 ML IV ONE (13:30)
[2025-07-29] MEDS ORDERED: ISOVUE-370 76% 100 ML VIAL As Ordered ONE (13:31)
[2025-07-29] MEDS ORDERED: KCL 10MEQ/100ML SWI (KRUN) 10 MEQ in IV 1 EA IV ONE (13:40)
[2025-07-29 13:48] VITALS: BP 106/91; TEMP 96.7; O2SAT 100
[2025-07-29 13:55] LABS: INR 1.07
[2025-07-29 14:00] LABS: CK-MB VALUE MASS 1.2 NG/ML (<3.6)
[2025-07-29 14:01] LABS: ETHYL ALCOHOL (ETHANOL) 0.003 % (0.000-0.010)
[2025-07-29] MEDS ORDERED: SEMA1PEN2 INJ (14:01)
[2025-07-29] MEDS ORDERED: FARX1TAB3 PO (14:01)
[2025-07-29] MEDS ORDERED: TRES1INJ2 INJ (14:01)
[2025-07-29] MEDS ORDERED: DULO1CAP6 PO (14:01)
[2025-07-29 14:02] LABS: CALCIUM LEVEL 8.8 MG/DL (8.5-10.1); CARBON DIOXIDE LEVEL 24 MMOL/L (20-31); CHLORIDE LEVEL 76 MMOL/L (98-107); CREATININE FOR GFR 0.76 MG/DL (0.70-1.30); GLOMERULAR FILTRATION RATE > 90.0 (>56); POTASSIUM SERUM 3.1 MMOL/L (3.5-5.1); SODIUM LEVEL 122 MMOL/L (136-145)
[2025-07-29] MEDS ORDERED: HOME MED LIST COMPLETE! XX SCH (14:05)
[2025-07-29 14:07] LABS: CPK CREATINE PHOSPHOKINASE 44 U/L (46-171); MB/CK RELATIVE INDEX 2.72 (< OR =4)
[2025-07-29] MEDS: POTASSIUM CHLORIDE 10MEQ SR TABLET PO ONE ×2 (14:27→20:37)
[2025-07-29 14:39] LABS: BASO # 0.1 10^3/uL (0.0-0.2); BASO % 0.4 % (0.0-1.0); EOS # 0.0 10^3/uL (0.0-0.5); EOS % 0.1 % (0.0-3.0); LYMPH # 1.3 10^3/uL (1.5-5.0); LYMPH % 9.4 % (24.0-44.0); MONO # 1.1 10^3/uL (0.0-0.8); MONO % 7.8 % (2.0-8.0); NEUTROPHILS # 10.8 10^3/uL (1.5-8.5); NEUTROPHILS % 79.4 % (36.0-66.0); PLATELET COUNT, AUTOMATED 187 10^3/uL (150-450)
[2025-07-29 14:54] LABS: VENOUS BASE EXCESS -1.4 (-2.0-2.0); VENOUS HCO3 23.3 MMOL/L (23.0-27.0); VENOUS O2 SATURATION 83.0 % (60.0-80.0); VENOUS PARTIAL PRESSURE CO2 39.2 mmHg (38.0-50.0); VENOUS PARTIAL PRESSURE O2 46.0 mmHg (30.0-50.0); VENOUS PH 7.391 UNITS (7.330-7.430); VENOUS STANDARD HCO3 22.9 MMOL/L; VENOUS TOTAL CO2 24.5 MMOL/L (24.0-28.0)
[2025-07-29 15:18] LABS: CK-MB VALUE MASS < 1.0 NG/ML (<3.6)
[2025-07-29 15:19] LABS: ACETONE/KETONE 0.18 MMOL/L (0.02-0.27); ALT/SGPT 89.0 U/L (7.0-40); AST/SGOT 129.0 U/L (<34); CPK CREATINE PHOSPHOKINASE 33 U/L (46-171)
[2025-07-29 15:22] LABS: ESTIMATED AVERAGE GLUCOSE 232.0 MG/DL (60-110)
[2025-07-29 15:29] LABS: APPEARANCE, URINE CLEAR (CLEAR); BACTERIA, URINE AUTO NEGATIVE (NEGATIVE); BILIRUBIN, URINE AUTO NEGATIVE (NEGATIVE); BLOOD, URINE BLOOD 1+ (NEGATIVE); GLUCOSE, URINE (UA) AUTO 3+ mg/dL (NEGATIVE); KETONE, URINE AUTO TRACE mg/dL (NEGATIVE); LEUKOCYTE ESTERASE, URINE AUTO NEGATIVE (NEGATIVE); NITRITE, URINE AUTO NEGATIVE (NEGATIVE); PROTEIN, URINE AUTO 1+ mg/dL (NEGATIVE); RBC, URINE AUTO 0 /HPF (0-3); SPECIFIC GRAVITY URINE AUTO 1.043 (1.002-1.035); SQUAMOUS EPITHELIAL CELL UR AU 0 /HPF (0-6); UROBILINOGEN, URINE AUTO 2.0 mg/dL (0.0-2.0); WBC, URINE AUTO 0 /HPF (0-3)
[2025-07-29 15:40] LABS: OSMOLALITY SERUM 285.0 MOSM/KG (275-295)
[2025-07-29] MEDS ORDERED: DEXTROSE 50% 50 ML SYRINGE IV PRN (16:15)
[2025-07-29] MEDS ORDERED: GLUCOSE 4 GM CHEW PO PRN (16:15)
[2025-07-29] MEDS ORDERED: GLUCAGON INJ 1 MG VIAL SC PRN (16:15)
[2025-07-29] MEDS: GASTROGRAFIN SOLUTION 30ML PO SCH (16:20)
[2025-07-29] MEDS: INSULIN LISPRO (NovoLOG) PER UNIT SC SCH ×2 (17:30→21:00)
[2025-07-29 17:53] LABS: CALCIUM LEVEL 7.8 MG/DL (8.5-10.1); CARBON DIOXIDE LEVEL 28 MMOL/L (20-31); CHLORIDE LEVEL 82 MMOL/L (98-107); CREATININE FOR GFR 0.72 MG/DL (0.70-1.30); GLOMERULAR FILTRATION RATE > 90.0 (>56); OSMOLALITY SERUM 286 MOSM/KG (275-295); POTASSIUM SERUM 3.1 MMOL/L (3.5-5.1); SODIUM LEVEL 126 MMOL/L (136-145)
[2025-07-29] MEDS: THIAMINE 100 MG TAB PO SCH (17:58)
[2025-07-29 18:21] LABS: MAGNESIUM LEVEL 2.2 MG/DL (1.8-2.4)
[2025-07-29] MEDS: NS (Normal Saline) 0.9% 1,000 ML IV SCH (20:37)
[2025-07-29 21:38] VITALS: BP 145/84; TEMP 97.3; O2SAT 99
[2025-07-29 22:00] VITALS: BP 145/84; TEMP 97.3
[2025-07-29] MEDS: LanTUS (INSULIN GLARGINE INJ) 1 UNITS/0.01 ML SC SCH (22:09)
[2025-07-29 22:46] LABS: CALCIUM LEVEL 8.0 MG/DL (8.5-10.1); CARBON DIOXIDE LEVEL 29 MMOL/L (20-31); CHLORIDE LEVEL 87 MMOL/L (98-107); CREATININE FOR GFR 0.65 MG/DL (0.70-1.30); GLOMERULAR FILTRATION RATE > 90.0 (>56); POTASSIUM SERUM 3.2 MMOL/L (3.5-5.1); SODIUM LEVEL 128 MMOL/L (136-145)
[2025-07-29 23:23] LABS: SODIUM,RANDOM URINE 13 MMOL/L
[2025-07-29 23:30] LABS: AMPHETAMINES LEVEL URINE NEGATIVE (NEGATIVE); BARBITURATES URINE NEGATIVE (NEGATIVE); BENZODIAZEPINES URINE NEGATIVE (NEGATIVE)
[2025-07-29 23:31] LABS: CANNABINOIDS URINE NEGATIVE (NEGATIVE); COCAINE METABOLITE URINE NEGATIVE (NEGATIVE); METHADONE URINE NEGATIVE (NEGATIVE); OPIATES URINE NEGATIVE (NEGATIVE); PHENCYCLIDINE URINE NEGATIVE (NEGATIVE)
[2025-07-30 04:00] VITALS: BP 112/83; TEMP 97.6; O2SAT 94
[2025-07-30 06:27] LABS: ALT/SGPT 87 U/L (7.0-40); AST/SGOT 170 U/L (<34); CALCIUM LEVEL 7.8 MG/DL (8.5-10.1); CARBON DIOXIDE LEVEL 34 MMOL/L (20-31); CHLORIDE LEVEL 87 MMOL/L (98-107); CREATININE FOR GFR 0.74 MG/DL (0.70-1.30); GLOMERULAR FILTRATION RATE > 90.0 (>56); MAGNESIUM LEVEL 2.3 MG/DL (1.8-2.4); POTASSIUM SERUM 3.4 MMOL/L (3.5-5.1); SODIUM LEVEL 130 MMOL/L (136-145)
[2025-07-30 07:10] LABS: PLATELET COUNT, AUTOMATED 167 10^3/uL (150-450)
[2025-07-30] MEDS: FLUoxetine 20 MG CAP PO SCH (08:56)
[2025-07-30] MEDS: MULTIVITAMINS/MINERALS THERAP 1 TAB PO SCH (08:56)
[2025-07-30] MEDS: D5W 1,000 ML IV ONE (08:56)
[2025-07-30] MEDS: FOLIC ACID 1 MG TAB PO SCH (08:57)
[2025-07-30] MEDS: ENOXAPARIN 40 MG/0.4 ML SYRINGE (J1650 PER 10MG) SC SCH (08:57)
[2025-07-30] MEDS: POTASSIUM CHLORIDE 10MEQ SR TABLET PO ONE (08:57)
[2025-07-30] MEDS ORDERED: POTASSIUM CHLORIDE 10MEQ SR TABLET PO SCH (09:00)
[2025-07-30 12:00] VITALS: BP 122/86; TEMP 97.4; O2SAT 98
[2025-07-30 16:05] VITALS: BP 118/87; O2SAT 97
[2025-07-30 16:19] LABS: CALCIUM LEVEL 7.7 MG/DL (8.5-10.1); CARBON DIOXIDE LEVEL 29 MMOL/L (20-31); CHLORIDE LEVEL 91 MMOL/L (98-107); CREATININE FOR GFR 0.58 MG/DL (0.70-1.30); GLOMERULAR FILTRATION RATE > 90.0 (>56); POTASSIUM SERUM 3.2 MMOL/L (3.5-5.1); SODIUM LEVEL 128 MMOL/L (136-145)
[2025-07-30] MEDS ORDERED: PANT20TA6 PO (17:22)
[2025-07-30] MEDS ORDERED: IBUP-1114 PO (17:22)
[2025-07-31] MEDS ORDERED: FLUZONE VACCINE TRI PF(25-26) 0.5ML SYRINGE IM.IMMUN ONE (09:00)
== END 2025-07-30 17:36 | disposition home or self-care (01) | DRG 425 ==
LOC: M ED 10:12 → M ED INP 16:12 → M MS4PR 21:34
PROVIDERS: ADMIT Internal Medicine; ATTEND Student in an Organized Health Care Education/Training Program
DX: E87.1 Hypo-osmolality and hyponatremia (principal); E11.40 Type 2 diabetes mellitus with diabetic neuropathy, unspecified; D75.1 Secondary polycythemia; I10 Essential (primary) hypertension; F39 Unspecified mood [affective] disorder; R26.89 Other abnormalities of gait and mobility; H53.8 Other visual disturbances; I95.1 Orthostatic hypotension; E87.6 Hypokalemia; R51.9 Headache, unspecified; Z86.73 Personal history of transient ischemic attack (TIA), and cerebral infarction without residual deficits; F10.20 Alcohol dependence, uncomplicated; R74.01 Elevation of levels of liver transaminase levels; D72.829 Elevated white blood cell count, unspecified; Z79.4 Long term (current) use of insulin; Z79.899 Other long term (current) drug therapy

== ENCOUNTER 2025-08-12 09:59 | Observation (INO) | payer OTHER ==
[~2025-08-12] VITALS: Ht 182.9 cm; Wt 75.5 kg
[~2025-08-12 09:59] MED LIST changes: +DULO1CAP6 PO; +IBUP-1114 PO; +PANT20TA6 PO; +SEMA1PEN2 INJ; +TRES1INJ2 INJ
[2025-08-12] MEDS: NS (Normal Saline) 0.9% 1,000 ML IV ONE ×3 (11:28→15:46)
[2025-08-12 11:30] LABS: BASO # 0.1 10^3/uL (0.0-0.2); BASO % 0.7 % (0.0-1.0); EOS # 0.1 10^3/uL (0.0-0.5); EOS % 0.5 % (0.0-3.0); LYMPH # 1.3 10^3/uL (1.5-5.0); LYMPH % 13.0 % (24.0-44.0); MONO # 0.8 10^3/uL (0.0-0.8); MONO % 8.2 % (2.0-8.0); NEUTROPHILS # 7.9 10^3/uL (1.5-8.5); NEUTROPHILS % 76.6 % (36.0-66.0); PLATELET COUNT, AUTOMATED 361 10^3/uL (150-450)
[2025-08-12 11:52] LABS: ETHYL ALCOHOL (ETHANOL) 0.006 % (0.000-0.010)
[2025-08-12 11:54] LABS: OSMOLALITY SERUM 292 MOSM/KG (275-295)
[2025-08-12 12:00] LABS: ALT/SGPT 118 U/L (7.0-40); AST/SGOT 176 U/L (<34); CALCIUM LEVEL 8.8 MG/DL (8.5-10.1); CARBON DIOXIDE LEVEL 31 MMOL/L (20-31); CHLORIDE LEVEL 88 MMOL/L (98-107); CREATININE FOR GFR 0.85 MG/DL (0.70-1.30); GLOMERULAR FILTRATION RATE > 90.0 (>56); MAGNESIUM LEVEL 1.2 MG/DL (1.8-2.4); POTASSIUM SERUM 3.5 MMOL/L (3.5-5.1); SODIUM LEVEL 133 MMOL/L (136-145)
[2025-08-12] MEDS: MAG SULF 1GM/100ML (MAG RUN) 1 GM in IV 1 EA IV ONE (12:52)
[2025-08-12 13:15] LABS: SODIUM,RANDOM URINE 50 MMOL/L
[2025-08-12 13:18] LABS: AMPHETAMINES LEVEL URINE NEGATIVE (NEGATIVE); BARBITURATES URINE NEGATIVE (NEGATIVE); BENZODIAZEPINES URINE NEGATIVE (NEGATIVE); CANNABINOIDS URINE NEGATIVE (NEGATIVE); COCAINE METABOLITE URINE NEGATIVE (NEGATIVE); METHADONE URINE NEGATIVE (NEGATIVE); OPIATES URINE NEGATIVE (NEGATIVE); PHENCYCLIDINE URINE NEGATIVE (NEGATIVE)
[2025-08-12] MEDS ORDERED: SILD100T PO (13:30)
[2025-08-12] MEDS ORDERED: HOME MED LIST COMPLETE! XX SCH (13:30)
[2025-08-12] MEDS: KETOROLAC 30 MG/ML 1 ML VIAL IV ONE (15:48)
[2025-08-12] MEDS ORDERED: GLUCOSE 4 GM CHEW PO PRN (16:30)
[2025-08-12] MEDS ORDERED: DEXTROSE 50% 50 ML SYRINGE IV PRN (16:30)
[2025-08-12] MEDS ORDERED: GLUCAGON INJ 1 MG VIAL SC PRN (16:30)
[2025-08-12] MEDS: MAG SULF 1GM/100ML (MAG RUN) 1 GM in IV 1 EA IV SCH (17:35)
[2025-08-12] MEDS: POTASSIUM CHLORIDE 10MEQ SR TABLET PO ONE (17:35)
[2025-08-12] MEDS: INSULIN LISPRO (NovoLOG) PER UNIT SC SCH ×2 (17:36→21:00)
[2025-08-12] MEDS: LR 1,000 ML IV SCH (20:07)
[2025-08-12] MEDS: LanTUS (INSULIN GLARGINE INJ) 1 UNITS/0.01 ML SC SCH (21:13)
[2025-08-12] MEDS: THIAMINE 200MG 2ML VIAL IM ONE (21:50)
[2025-08-12 21:55] LABS: SOFIA COVID ANTIGEN NEGATIVE (NEGATIVE)
[2025-08-12] MEDS: IBUPROFEN 600 MG TAB PO ONE (23:48)
[2025-08-12] MEDS: FIORICET TAB PO ONE (23:51)
[2025-08-13 07:03] LABS: BASO # 0.1 10^3/uL (0.0-0.2); BASO % 1.0 % (0.0-1.0); EOS # 0.1 10^3/uL (0.0-0.5); EOS % 1.7 % (0.0-3.0); LYMPH # 1.8 10^3/uL (1.5-5.0); LYMPH % 23.4 % (24.0-44.0); MONO # 0.8 10^3/uL (0.0-0.8); MONO % 10.1 % (2.0-8.0); NEUTROPHILS # 4.8 10^3/uL (1.5-8.5); NEUTROPHILS % 62.9 % (36.0-66.0)
[2025-08-13 07:18] LABS: PLATELET COUNT, AUTOMATED 272 10^3/uL (150-450)
[2025-08-13 07:25] LABS: ALT/SGPT 85 U/L (7.0-40); AST/SGOT 141 U/L (<34); CALCIUM LEVEL 7.7 MG/DL (8.5-10.1); CARBON DIOXIDE LEVEL 27 MMOL/L (20-31); CHLORIDE LEVEL 99 MMOL/L (98-107); CREATININE FOR GFR 0.62 MG/DL (0.70-1.30); GLOMERULAR FILTRATION RATE > 90.0 (>56); MAGNESIUM LEVEL 1.6 MG/DL (1.8-2.4); POTASSIUM SERUM 3.4 MMOL/L (3.5-5.1); SODIUM LEVEL 134 MMOL/L (136-145)
[2025-08-13 07:40] VITALS: BP 131/87; TEMP 98.2; O2SAT 98
[2025-08-13] MEDS ORDERED: MAGNESIUM OXIDE 400 MG TAB PO SCH (09:00)
[2025-08-13] MEDS ORDERED: POTASSIUM CHLORIDE 10MEQ SR TABLET PO SCH (09:00)
[2025-08-13] MEDS: DAPAGLIFLOZIN PROPANEDIOL 10 MG TABLET PO SCH (10:05)
[2025-08-13] MEDS: MAGNESIUM OXIDE 400 MG TAB PO SCH (10:05)
[2025-08-13] MEDS: MULTIVITAMINS/MINERALS THERAP 1 TAB PO SCH (10:06)
[2025-08-13] MEDS: FOLIC ACID 1 MG TAB PO SCH (10:06)
[2025-08-13] MEDS: THIAMINE 100 MG TAB PO SCH (10:06)
[2025-08-13] MEDS: POTASSIUM CHLORIDE 10MEQ SR TABLET PO SCH (10:07)
[2025-08-13] MEDS: CYANOCOBALAMIN 1,000 MCG/ML 1 ML VIAL SC SCH (10:13)
[2025-08-13] MEDS: ENOXAPARIN 40 MG/0.4 ML SYRINGE (J1650 PER 10MG) SC SCH (10:14)
[2025-08-13] MEDS: LanTUS (INSULIN GLARGINE INJ) 1 UNITS/0.01 ML SC SCH (10:18)
[2025-08-13] MEDS: MAG SULF 1GM/100ML (MAG RUN) 1 GM in IV 1 EA IV SCH (10:19)
[2025-08-13 10:37] VITALS: BP 127/88
[2025-08-13 10:40] VITALS: BP_SYST 102; BP_SYST 105; BP_SYST 127; BP_DIAS 76; BP_DIAS 78; BP_DIAS 88
[2025-08-13 12:00] VITALS: BP 135/85; TEMP 97.3; O2SAT 98
[2025-08-13] MEDS ORDERED: ASPIRIN 81 MG ENTERIC TABLET PO SCH (12:40)
[2025-08-13] MEDS ORDERED: TOPA1TAB PO (13:24)
[2025-08-13] MEDS ORDERED: MAG-400T7 PO (13:24)
[2025-08-13] MEDS ORDERED: TRES1INJ2 INJ (13:24)
[2025-08-13] MEDS ORDERED: POTA-298 PO (13:24)
[2025-08-13] MEDS ORDERED: ASPI81CH33 PO (13:24)
[2025-08-13] MEDS ORDERED: ATOR1TAB21 PO (13:24)
[2025-08-13] MEDS: FLUZONE VACCINE TRI PF(25-26) 0.5ML SYRINGE IM.IMMUN ONE (15:58)
[2025-08-14] MEDS ORDERED: ATORVASTATIN 20 MG TAB PO SCH (09:00)
== END 2025-08-13 15:52 | disposition home or self-care (01) ==
LOC: M ED 09:59 → M ED INP 10:00 → M MS4PR 08-13 07:50
PROVIDERS: ADMIT Student in an Organized Health Care Education/Training Program; ATTEND Student in an Organized Health Care Education/Training Program
DX: E83.42 Hypomagnesemia (principal); E11.65 Type 2 diabetes mellitus with hyperglycemia; F10.10 Alcohol abuse, uncomplicated; I95.1 Orthostatic hypotension; R63.8 Other symptoms and signs concerning food and fluid intake; R42 Dizziness and giddiness; R51.9 Headache, unspecified; R74.01 Elevation of levels of liver transaminase levels; H53.9 Unspecified visual disturbance; Z91.81 History of falling; F07.81 Postconcussional syndrome; I10 Essential (primary) hypertension; F39 Unspecified mood [affective] disorder; Z86.73 Personal history of transient ischemic attack (TIA), and cerebral infarction without residual deficits; Z83.3 Family history of diabetes mellitus; Z80.0 Family history of malignant neoplasm of digestive organs; Z80.1 Family history of malignant neoplasm of trachea, bronchus and lung; Z79.899 Other long term (current) drug therapy; Z79.85 Long-term (current) use of injectable non-insulin antidiabetic drugs; Z79.84 Long term (current) use of oral hypoglycemic drugs; Z23 Encounter for immunization
CPT/HCPCS: 36415; 70450; 76705; 80048; 80053; 80076; 80307; 82077; 83735; 83930; 83935; 84300; 84443; 85025; 87428; 87486; 87581; 87633; 87798; 90471; 90656; 96361; 96365; 96372; 96375; 99285; J1650; J1815; J1885; J3411; J3420; J3475

== ENCOUNTER → 2025-08-23 | Outpatient (CLI) | payer OTHER ==
[~2025-08-23] MED LIST changes: +ASPI81CH33 PO; +ASPI81TA26 PO; +ATOR1TAB21 PO; +MAG-400T7 PO; +MAGN400T2 PO; +MELO15TA28 PO; +SILD100T PO; +THIA100TA PO; +TOPA1TAB PO; +TOPI-256 PO; +TRES1INJ2 SC
[2025-09-01 11:57] LABS: TESTOSTERONE FREE (DIRECT) 30.9 pg/mL (35.0-155.0); TESTOSTERONE TOTAL FOR T&D 435.0 ng/dL (250-1100)
== END ==
LOC: M WUC 08:53
PROVIDERS: ATTEND Family Medicine
DX: N52.9 Male erectile dysfunction, unspecified (principal)

== ENCOUNTER 2025-08-25 13:11 | Inpatient (IN) | payer OTHER ==
[~2025-08-25] VITALS: Ht 182.9 cm; Wt 77.5 kg
[~2025-08-25 13:11] MED LIST changes: -ASPI81TA26 PO; -MAGN400T2 PO; -MELO15TA28 PO; -THIA100TA PO; -TOPI-256 PO; -TRES1INJ2 SC
[2025-08-25] MEDS: NS (Normal Saline) 0.9% 1,000 ML IV ONE (13:54)
[2025-08-25 14:06] LABS: VENOUS BASE EXCESS 1.2 (-2.0-2.0); VENOUS HCO3 25.8 MMOL/L (23.0-27.0); VENOUS O2 SATURATION 37.5 % (60.0-80.0); VENOUS PARTIAL PRESSURE CO2 40.8 mmHg (38.0-50.0); VENOUS PARTIAL PRESSURE O2 22.1 mmHg (30.0-50.0); VENOUS PH 7.418 UNITS (7.330-7.430); VENOUS STANDARD HCO3 23.9 MMOL/L; VENOUS TOTAL CO2 27.0 MMOL/L (24.0-28.0)
[2025-08-25 14:14] LABS: BASO # 0.1 10^3/uL (0.0-0.2); BASO % 0.6 % (0.0-1.0); EOS # 0.0 10^3/uL (0.0-0.5); EOS % 0.4 % (0.0-3.0); LYMPH # 1.7 10^3/uL (1.5-5.0); LYMPH % 16.9 % (24.0-44.0); MONO # 0.9 10^3/uL (0.0-0.8); MONO % 8.5 % (2.0-8.0); NEUTROPHILS # 7.3 10^3/uL (1.5-8.5); NEUTROPHILS % 72.7 % (36.0-66.0); PLATELET COUNT, AUTOMATED 236 10^3/uL (150-450)
[2025-08-25 14:38] LABS: ETHYL ALCOHOL (ETHANOL) < 0.003 % (0.000-0.010)
[2025-08-25 14:39] LABS: ACETONE/KETONE 4.19 MMOL/L (0.02-0.27)
[2025-08-25 14:43] LABS: ALT/SGPT 109 U/L (7.0-40); AST/SGOT 217 U/L (<34); CALCIUM LEVEL 9.2 MG/DL (8.5-10.1); CARBON DIOXIDE LEVEL 26 MMOL/L (20-31); CHLORIDE LEVEL 92 MMOL/L (98-107); CREATININE FOR GFR 0.89 MG/DL (0.70-1.30); GLOMERULAR FILTRATION RATE > 90.0 (>56); MAGNESIUM LEVEL 1.5 MG/DL (1.8-2.4); POTASSIUM SERUM 4.0 MMOL/L (3.5-5.1); SODIUM LEVEL 133 MMOL/L (136-145)
[2025-08-25 14:49] LABS: INR 1.07
[2025-08-25] MEDS: MAG SULF 1GM/100ML (MAG RUN) 1 GM in IV 1 EA IV ONE ×2 (15:33→16:30)
[2025-08-25] MEDS ORDERED: MOM 30 ML SUSPENSION UDC PO PRN (15:35)
[2025-08-25] MEDS ORDERED: GLUCOSE 4 GM CHEW PO PRN (15:35)
[2025-08-25] MEDS ORDERED: MAALOX 30 ML SUSP *UDC PO PRN (15:35)
[2025-08-25] MEDS ORDERED: GLUCAGON INJ 1 MG VIAL SC PRN (15:35)
[2025-08-25] MEDS ORDERED: DEXTROSE 50% 50 ML SYRINGE IV PRN (15:35)
[2025-08-25] MEDS: FOLIC ACID 1 MG TAB PO SCH (16:04)
[2025-08-25] MEDS: MULTIVITAMINS/MINERALS THERAP 1 TAB PO SCH (16:04)
[2025-08-25] MEDS: D5W/0.9% SODIUM CHLORIDE 1,000 ML IV SCH (16:29)
[2025-08-25] MEDS ORDERED: TRES1INJ2 SC (17:42)
[2025-08-25] MEDS ORDERED: MAGN400T2 PO (17:42)
[2025-08-25] MEDS ORDERED: ATOR1TAB21 PO (17:42)
[2025-08-25] MEDS ORDERED: ASPI81TA26 PO (17:42)
[2025-08-25] MEDS ORDERED: TOPI-256 PO (17:42)
[2025-08-25] MEDS ORDERED: MELO15TA28 PO (17:43)
[2025-08-25] MEDS ORDERED: HOME MED LIST COMPLETE! XX SCH (17:45)
[2025-08-25] MEDS: MAG SULF 1GM/100ML (MAG RUN) 1 GM in IV 1 EA IV SCH (18:04)
[2025-08-25] MEDS: INSULIN LISPRO (NovoLOG) PER UNIT SC SCH ×2 (18:39→20:50)
[2025-08-25] MEDS: THIAMINE 100 MG TAB PO SCH (21:26)
[2025-08-25] MEDS: MAGNESIUM OXIDE 400 MG TAB PO SCH (21:26)
[2025-08-25] MEDS: DOCUSATE SODIUM 100 MG CAPSULE PO SCH (21:26)
[2025-08-25] MEDS: LanTUS (INSULIN GLARGINE INJ) 1 UNITS/0.01 ML SC SCH (21:27)
[2025-08-26 07:44] LABS: ALT/SGPT 83 U/L (7.0-40); AST/SGOT 175 U/L (<34); CALCIUM LEVEL 8.2 MG/DL (8.5-10.1); CARBON DIOXIDE LEVEL 26 MMOL/L (20-31); CHLORIDE LEVEL 100 MMOL/L (98-107); CREATININE FOR GFR 0.81 MG/DL (0.70-1.30); GLOMERULAR FILTRATION RATE > 90.0 (>56); MAGNESIUM LEVEL 2.3 MG/DL (1.8-2.4); POTASSIUM SERUM 3.2 MMOL/L (3.5-5.1); SODIUM LEVEL 137 MMOL/L (136-145)
[2025-08-26 07:45] LABS: BASO # 0.1 10^3/uL (0.0-0.2); BASO % 0.9 % (0.0-1.0); EOS # 0.1 10^3/uL (0.0-0.5); EOS % 1.4 % (0.0-3.0); LYMPH # 1.6 10^3/uL (1.5-5.0); LYMPH % 26.4 % (24.0-44.0); MONO # 0.6 10^3/uL (0.0-0.8); MONO % 10.7 % (2.0-8.0); NEUTROPHILS # 3.5 10^3/uL (1.5-8.5); NEUTROPHILS % 59.9 % (36.0-66.0); PLATELET COUNT, AUTOMATED 167 10^3/uL (150-450)
[2025-08-26] MEDS: ATORVASTATIN 20 MG TAB PO SCH (09:00)
[2025-08-26] MEDS: ASPIRIN 81 MG ENTERIC TABLET PO SCH (09:00)
[2025-08-26] MEDS: DAPAGLIFLOZIN PROPANEDIOL 10 MG TABLET PO SCH (09:01)
[2025-08-26] MEDS: TOPIRAMATE 25 MG TAB PO SCH (09:01)
[2025-08-26] MEDS: amLODIPine 5 MG TAB PO SCH (09:03)
[2025-08-26] MEDS: ENOXAPARIN 40 MG/0.4 ML SYRINGE (J1650 PER 10MG) SC SCH (09:54)
[2025-08-26] MEDS: POTASSIUM CHLORIDE 10MEQ SR TABLET PO ONE (09:55)
[2025-08-26] MEDS: MELOXICAM 7.5 MG TAB PO SCH (10:33)
[2025-08-26 12:39] VITALS: O2SAT 99
[2025-08-26 15:00] VITALS: BP 129/90; TEMP 98; O2SAT 97
[2025-08-26 15:17] VITALS: BP 129/75
[2025-08-26 16:20] VITALS: BP 132/91; TEMP 97.6; O2SAT 99
[2025-08-26 20:36] VITALS: BP 132/86; TEMP 97.3; O2SAT 99
[2025-08-27 00:18] VITALS: BP 150/96; TEMP 97.3; O2SAT 99
[2025-08-27] MEDS: ACETAMINOPHEN 325 MG TAB PO PRN (01:22)
[2025-08-27 04:06] VITALS: BP 124/72; TEMP 97; O2SAT 99
[2025-08-27 06:32] LABS: BASO # 0.1 10^3/uL (0.0-0.2); BASO % 1.2 % (0.0-1.0); EOS # 0.1 10^3/uL (0.0-0.5); EOS % 1.7 % (0.0-3.0); LYMPH # 1.8 10^3/uL (1.5-5.0); LYMPH % 30.8 % (24.0-44.0); MONO # 0.7 10^3/uL (0.0-0.8); MONO % 11.6 % (2.0-8.0); NEUTROPHILS # 3.1 10^3/uL (1.5-8.5); NEUTROPHILS % 53.5 % (36.0-66.0); PLATELET COUNT, AUTOMATED 174 10^3/uL (150-450)
[2025-08-27 06:46] LABS: ALT/SGPT 72 U/L (7.0-40); AST/SGOT 130 U/L (<34); CALCIUM LEVEL 8.4 MG/DL (8.5-10.1); CARBON DIOXIDE LEVEL 26 MMOL/L (20-31); CHLORIDE LEVEL 101 MMOL/L (98-107); CREATININE FOR GFR 0.73 MG/DL (0.70-1.30); GLOMERULAR FILTRATION RATE > 90.0 (>56); MAGNESIUM LEVEL 1.8 MG/DL (1.8-2.4); POTASSIUM SERUM 3.7 MMOL/L (3.5-5.1); SODIUM LEVEL 136 MMOL/L (136-145)
[2025-08-27 07:50] VITALS: BP 140/92; TEMP 98.7; O2SAT 98
[2025-08-27] MEDS ORDERED: THIA100TA PO (10:39)
[2025-08-27 12:00] VITALS: BP 125/83; TEMP 98.7; O2SAT 98
[2025-08-27] MEDS: OXAZEPAM 10MG CAP PO ONE (12:04)
[2025-08-27 20:43] VITALS: BP 128/92; TEMP 98.2; O2SAT 99
[2025-08-27 23:51] VITALS: BP 145/97; TEMP 97.9; O2SAT 97
[2025-08-28] VITALS (12 sets, daily range): BP systolic 124–155; BP diastolic 63–101; TEMP 96.9–98.3; O2SAT 95–99
[2025-08-28 05:45] LABS: BASO # 0.1 10^3/uL (0.0-0.2); BASO % 1.6 % (0.0-1.0); EOS # 0.2 10^3/uL (0.0-0.5); EOS % 2.7 % (0.0-3.0); LYMPH # 1.8 10^3/uL (1.5-5.0); LYMPH % 28.8 % (24.0-44.0); MONO # 0.7 10^3/uL (0.0-0.8); MONO % 11.7 % (2.0-8.0); NEUTROPHILS # 3.4 10^3/uL (1.5-8.5); NEUTROPHILS % 53.9 % (36.0-66.0); PLATELET COUNT, AUTOMATED 198 10^3/uL (150-450)
[2025-08-28 06:11] LABS: ALT/SGPT 58 U/L (7.0-40); AST/SGOT 93 U/L (<34); CALCIUM LEVEL 8.9 MG/DL (8.5-10.1); CARBON DIOXIDE LEVEL 25 MMOL/L (20-31); CHLORIDE LEVEL 104 MMOL/L (98-107); CREATININE FOR GFR 0.85 MG/DL (0.70-1.30); GLOMERULAR FILTRATION RATE > 90.0 (>56); MAGNESIUM LEVEL 2.0 MG/DL (1.8-2.4); POTASSIUM SERUM 3.7 MMOL/L (3.5-5.1); SODIUM LEVEL 137 MMOL/L (136-145)
[2025-08-28] MEDS: OXAZEPAM 10MG CAP PO SCH (12:48)
[2025-08-29 04:29] VITALS: BP 139/94; TEMP 97.5; O2SAT 98
[2025-08-29 06:48] LABS: BASO # 0.1 10^3/uL (0.0-0.2); BASO % 1.1 % (0.0-1.0); EOS # 0.2 10^3/uL (0.0-0.5); EOS % 2.2 % (0.0-3.0); LYMPH # 1.9 10^3/uL (1.5-5.0); LYMPH % 23.9 % (24.0-44.0); MONO # 1.0 10^3/uL (0.0-0.8); MONO % 12.5 % (2.0-8.0); NEUTROPHILS # 4.7 10^3/uL (1.5-8.5); NEUTROPHILS % 58.8 % (36.0-66.0); PLATELET COUNT, AUTOMATED 221 10^3/uL (150-450)
[2025-08-29 07:10] LABS: ALT/SGPT 58 U/L (7.0-40); AST/SGOT 102 U/L (<34); CALCIUM LEVEL 9.2 MG/DL (8.5-10.1); CARBON DIOXIDE LEVEL 23 MMOL/L (20-31); CHLORIDE LEVEL 105 MMOL/L (98-107); CREATININE FOR GFR 0.74 MG/DL (0.70-1.30); GLOMERULAR FILTRATION RATE > 90.0 (>56); MAGNESIUM LEVEL 1.9 MG/DL (1.8-2.4); POTASSIUM SERUM 4.0 MMOL/L (3.5-5.1); SODIUM LEVEL 138 MMOL/L (136-145)
[2025-08-29 07:34] VITALS: BP 129/85; TEMP 97.8; O2SAT 100
[2025-08-29 08:00] VITALS: BP 129/85
[2025-08-29 11:31] VITALS: BP 146/96; TEMP 97.6; O2SAT 98
[2025-08-29] MEDS: OXAZEPAM 10MG CAP PO SCH (13:22)
[2025-08-29 16:10] VITALS: BP 140/93; TEMP 97.5; O2SAT 100
[2025-08-29 19:43] VITALS: BP 142/84; TEMP 97.3; O2SAT 100
[2025-08-29] MEDS: KETOROLAC 30 MG/ML 1 ML VIAL IV ONE (21:41)
[2025-08-30 03:45] VITALS: BP 138/90; TEMP 97.3; O2SAT 100
[2025-08-30 07:10] LABS: BASO # 0.1 10^3/uL (0.0-0.2); BASO % 1.2 % (0.0-1.0); EOS # 0.2 10^3/uL (0.0-0.5); EOS % 2.0 % (0.0-3.0); LYMPH # 1.6 10^3/uL (1.5-5.0); LYMPH % 18.4 % (24.0-44.0); MONO # 1.0 10^3/uL (0.0-0.8); MONO % 11.7 % (2.0-8.0); NEUTROPHILS # 5.8 10^3/uL (1.5-8.5); NEUTROPHILS % 65.4 % (36.0-66.0); PLATELET COUNT, AUTOMATED 239 10^3/uL (150-450)
[2025-08-30 07:32] LABS: ALT/SGPT 55 U/L (7.0-40); AST/SGOT 99 U/L (<34); CALCIUM LEVEL 9.3 MG/DL (8.5-10.1); CARBON DIOXIDE LEVEL 28 MMOL/L (20-31); CHLORIDE LEVEL 102 MMOL/L (98-107); CREATININE FOR GFR 0.80 MG/DL (0.70-1.30); GLOMERULAR FILTRATION RATE > 90.0 (>56); MAGNESIUM LEVEL 2.1 MG/DL (1.8-2.4); POTASSIUM SERUM 3.9 MMOL/L (3.5-5.1); SODIUM LEVEL 137 MMOL/L (136-145)
[2025-08-30 08:02] VITALS: BP 131/85
== END 2025-08-30 08:56 | disposition home or self-care (01) | DRG 775 ==
LOC: M ED 13:11 → M ED INP 13:12 → M PCU 08-26 14:53 → OBSVTOIN 08-28 11:17 → M MSPAV 08-29 16:05
PROVIDERS: ADMIT Internal Medicine; ATTEND Internal Medicine
DX: F10.139 Alcohol abuse with withdrawal, unspecified (principal); E83.42 Hypomagnesemia; I10 Essential (primary) hypertension; F39 Unspecified mood [affective] disorder; I95.1 Orthostatic hypotension; E87.1 Hypo-osmolality and hyponatremia; R42 Dizziness and giddiness; E11.9 Type 2 diabetes mellitus without complications; R29.6 Repeated falls; R74.01 Elevation of levels of liver transaminase levels; G43.909 Migraine, unspecified, not intractable, without status migrainosus; E87.6 Hypokalemia; Z86.73 Personal history of transient ischemic attack (TIA), and cerebral infarction without residual deficits; Z79.4 Long term (current) use of insulin; Z98.2 Presence of cerebrospinal fluid drainage device; Z79.899 Other long term (current) drug therapy